=== PATIENT | female | born 1955 | race Two or more races ===

== ENCOUNTER → 2016-08-25 | Outpatient (CLI) | payer BC ==
[~2016-08-25] MED LIST: AMLO5TAB2 PO; BYDU1INJ SC; CLAR5TAB PO; DOXA1TAB71 PO; FENO48TA2 PO; GLIP5TAB8 PO; INSUDET SC; LISI10TA4 PO; MAGN400C2 PO; METO-207 PO; NEXI40GR PO; ROSU10TA PO; SERT-138 PO; TRAD5TAB PO; VITA100066 PO; ZOFR20TA PO
--- NOTE | 2016-08-25 16:26 | REPMRS ---
Patient History The patient states she had a clinical breast exam in 07/2016. Patient is postmenopausal, had previous chest radiation therapy at age 45, had previous chemotherapy at age 45, and has history of cancer in the left breast at age 44. Family history of breast cancer in maternal cousin at age 35. Malignant lumpectomy of the left breast, 1999. Took tamoxifen for 5 years. Digital Woman Screen Mammo: August 25, 2016 - Exam #: [id number] Bilateral CC and MLO view(s) were taken. Technologist: Fernanda Chang, Technologist Prior study comparison: August 24, 2015, bilateral digital mammo screening bilat, performed at [facility]. August 10, 2014, bilateral digital mammo screening bilat, performed at [facility]. June 04, 2013, bilateral digital mammo screening bilat, performed at [facility]. FINDINGS: There are scattered fibroglandular densities. There has been no change in the appearance of the mammogram from the prior studies. There are stable post treatment changes in the left breast. There is a mild amount of scattered fibroglandular density which is fairly symmetric. There is no interval development of dominant mass, architectural distortion, or clustered microcalcification suggestive of malignancy. ASSESSMENT: BI-RADS/ACR category 1 mammogram. Negative. Recommendation Routine screening mammogram in 1 year (for women over age 40). This mammogram was interpreted with the aid of an FDA-approved computer-aided dectection system. Electronically Signed By: Ryan Rojas MD 08/25/16 [id number]
--- NOTE | 2016-08-28 15:07 | DEXA ---
AP SPINE L1 - L4 1.314 1.0 LT FEMUR TOTAL 1.110 0.8 RT FEMUR TOTAL 1.080 0.6 TOTAL BODY TOTAL OTHER DUAL FEMUR FRAX* ASSESSMENT Risk factors: Secondary menopause, insulin-dependent, premature menopause. 10 year probability of fracture Major osteoporotic fracture 6.1 % Hip fracture 0.2 % COMMENTS: Normal bone densitometry of the spine and hips. Density of the spine has decreased 4.7% since the initial exam on 01/13/2005. The spine density has increased 1.6% since the most recent exam on 08/13/2008. The density of the left hip has decreased 10.1% since the initial exam on 2004. The density of the left hip has decreased 2.1% since the most recent exam on 03/2009. The density of the right hip has decreased 8.8% since the initial exam on 2004. The density of the right hip has decreased 1.8% since the most recent exam on . FOLLOW-UP: Recommendation for the next bone density exam: 5 years. MANPREET
== END ==
LOC: M WHC 14:35
PROVIDERS: ATTEND Internal Medicine Medical Oncology
DX: Z12.31 Encounter for screening mammogram for malignant neoplasm of breast (principal); Z78.0 Asymptomatic menopausal state
CPT/HCPCS: 77080; G0202

== ENCOUNTER → 2016-09-05 | Outpatient (REF) | payer BC ==
[2016-09-05 19:25] LABS: PERCENT SATURATION 21.4 % (13.2-37.4)
== END ==
LOC: M LAB REF 17:03
PROVIDERS: ATTEND Internal Medicine Medical Oncology
DX: C50.919 Malignant neoplasm of unspecified site of unspecified female breast (principal)

== ENCOUNTER → 2016-09-26 | Outpatient (CLI) | payer BC ==
[~2016-09-26] VITALS: Ht 172.7 cm; Wt 103.9 kg
[~2016-09-26] MED LIST changes: +FERR325T3 PO; +INSUH10VL SC; +LEVOTAB10 PO; +LIDOCAINE 2% INJ 100 MG/5 ML SDV (FOR ANES.) As Ordered ONE; +LISI-542 PO; +MONT10TA2 PO; +NS 1,000 ML IV SCH; +PROPOFOL 200 MG/20 ML VIAL As Ordered ONE; +TRES1INJ2 SC
--- NOTE | 2016-09-26 10:04 | ROOR ---
Patient Name: Monica Bone Procedure Date: 09/26/2016 9:53 AM Date of : 1955 Age: 61 Room: [facility] Gender: Female Note Status: Finalized Procedure: Upper GI endoscopy + SBB Indications: Unexplained iron deficiency anemia Providers: Yariel Plummer MD Referring MD: Gregorio Brand MD Requesting Provider: Medicines: Monitored Anesthesia Care Complications: No immediate complications. Procedure: Pre-Anesthesia Assessment: - The heart rate, respiratory rate, oxygen saturations, blood pressure, adequacy of pulmonary ventilation, and response to care were monitored throughout the procedure. The Endoscope was introduced through the mouth, and advanced to the second part of duodenum. The upper GI endoscopy was accomplished without difficulty. The patient tolerated the procedure well. Findings: The Z-line was regular and was found 40 cm from the incisors. No other significant abnormalities were identified in a careful examination of the stomach. The exam of the duodenum was otherwise normal. Biopsies for histology were taken with a cold forceps in the first portion of the duodenum for evaluation of celiac disease. The exam was otherwise without abnormality. Impression: - Z-line regular, 40 cm from the incisors. - The examination was otherwise normal. - Biopsies were taken with a cold forceps for evaluation of celiac disease. - The examination was otherwise normal. Recommendation: - Patient has a contact number available for emergencies. The signs and symptoms of potential delayed complications were discussed with the patient. Return to normal activities tomorrow. Written discharge instructions were provided to the patient. - High fiber diet. - Discharge patient to home. - Continue present medications. - Await pathology results. - Return to referring physician. - Telephone GI clinic for pathology results in 1 week. - The findings and recommendations were discussed with the patient's family. Yariel Plummer MD Yariel Plummer MD 09/26/2016 10:04:27 AM This report has been signed electronically. Number of Addenda: 0 Note Initiated On: 09/26/2016 9:53 AM Estimated Blood Loss: Estimated blood loss: none.
--- NOTE | 2016-09-26 10:18 | ROOR ---
Patient Name: Monica Bone Procedure Date: 09/26/2016 9:54 AM Date of : 1955 Age: 61 Room: [facility] Gender: Female Note Status: Finalized Procedure: Colonoscopy to Cecum Indications: Unexplained iron deficiency anemia Providers: Yariel Plummer MD Referring MD: Gregorio Brand MD Requesting Provider: Medicines: Monitored Anesthesia Care Complications: No immediate complications. Procedure: Pre-Anesthesia Assessment: - The heart rate, respiratory rate, oxygen saturations, blood pressure, adequacy of pulmonary ventilation, and response to care were monitored throughout the procedure. The Colonoscope was introduced through the anus and advanced to the cecum, identified by appendiceal orifice and ileocecal valve. The colonoscopy was performed without difficulty. The patient tolerated the procedure well. The quality of the bowel preparation was excellent. Findings: The perianal and digital rectal examinations were normal. Non-bleeding internal hemorrhoids were found during retroflexion. The hemorrhoids were small and Grade I (internal hemorrhoids that do not prolapse). Scattered small-mouthed diverticula were found in the recto-sigmoid colon, sigmoid colon and descending colon. The exam was otherwise without abnormality on direct and retroflexion views. Impression: - Non-bleeding internal hemorrhoids. - Diverticulosis in the recto-sigmoid colon, in the sigmoid colon and in the descending colon. - The examination was otherwise normal on direct and retroflexion views. - No specimens collected. - The exam was otherwise normal to the cecum. Recommendation: - Patient has a contact number available for emergencies. The signs and symptoms of potential delayed complications were discussed with the patient. Return to normal activities tomorrow. Written discharge instructions were provided to the patient. - High fiber diet. - Discharge patient to home. - Continue present medications. - Repeat colonoscopy in 10 years for screening purposes. - Return to referring physician. - The findings and recommendations were discussed with the patient's family. Yariel Plummer MD Yariel Plummer MD 09/26/2016 10:17:55 AM This report has been signed electronically. Number of Addenda: 0 Note Initiated On: 09/26/2016 9:54 AM Estimated Blood Loss: Estimated blood loss: none.
[2016-09-26 10:42] VITALS: BP 125/77
== END | disposition home or self-care (01) ==
LOC: M OPP 09:04
PROVIDERS: ATTEND Internal Medicine Gastroenterology
DX: D50.9 Iron deficiency anemia, unspecified (principal); K64.0 First degree hemorrhoids; K57.30 Diverticulosis of large intestine without perforation or abscess without bleeding; I12.9 Hypertensive chronic kidney disease with stage 1 through stage 4 chronic kidney disease, or unspecified chronic kidney disease; E78.5 Hyperlipidemia, unspecified; E10.9 Type 1 diabetes mellitus without complications; G47.30 Sleep apnea, unspecified; R06.83 Snoring; M17.0 Bilateral primary osteoarthritis of knee; F41.9 Anxiety disorder, unspecified; F32.9 Major depressive disorder, single episode, unspecified; G62.9 Polyneuropathy, unspecified; N18.9 Chronic kidney disease, unspecified; Z88.8 Allergy status to other drugs, medicaments and biological substances; Z79.84 Long term (current) use of oral hypoglycemic drugs; Z79.4 Long term (current) use of insulin; Z79.899 Other long term (current) drug therapy; Z85.3 Personal history of malignant neoplasm of breast; Z92.3 Personal history of irradiation; Z92.21 Personal history of antineoplastic chemotherapy; Z78.0 Asymptomatic menopausal state; K21.9 Gastro-esophageal reflux disease without esophagitis

== ENCOUNTER 2017-01-31 16:45 | Outpatient (RCR) | payer BC ==
[~2017-01-31 16:45] MED LIST changes: +CRES10TA32 PO; -LIDOCAINE 2% INJ 100 MG/5 ML SDV (FOR ANES.) As Ordered ONE; -METO-207 PO; +METO1TAB7 PO; -NS 1,000 ML IV SCH; -PROPOFOL 200 MG/20 ML VIAL As Ordered ONE; -ROSU10TA PO
== END 2017-02-02 ==
LOC: M PT 16:45
PROVIDERS: ATTEND Orthopaedic Surgery
DX: Z51.89 Encounter for other specified aftercare (principal); M17.11 Unilateral primary osteoarthritis, right knee

== ENCOUNTER 2017-03-01 16:00 | Outpatient (RCR) | payer BC | END 2017-03-05 | disposition home or self-care (01) | LOC: M PT 16:00 | PROVIDERS: ATTEND Orthopaedic Surgery | DX: Z51.89 Encounter for other specified aftercare (principal); M17.11 Unilateral primary osteoarthritis, right knee ==

== ENCOUNTER 2017-07-04 15:15 | Outpatient (RCR) | payer BC | END 2017-07-05 | LOC: M PT 15:15 | PROVIDERS: ATTEND Family Medicine | DX: Z51.89 Encounter for other specified aftercare (principal); M25.552 Pain in left hip; M54.32 Sciatica, left side ==

== ENCOUNTER → 2017-08-27 | Outpatient (CLI) | payer BC ==
[2017-08-27 19:46] LABS: ANION GAP 8 MEQ/L (8-16); BLOOD UREA NITROGEN 47 MG/DL (7-18); CALCIUM LEVEL 9.2 MG/DL (8.8-10.2); CARBON DIOXIDE LEVEL 23 MEQ/L (21-32); CHLORIDE LEVEL 107 MEQ/L (98-107); CREATININE FOR GFR 2.56 MG/DL (0.55-1.02); GLOMERULAR FILTRATION RATE 20.3 (>45); GLUCOSE, FASTING 128 MG/DL (70-100); POTASSIUM SERUM 5.1 MEQ/L (3.5-5.1); SODIUM LEVEL 138 MEQ/L (136-145)
== END ==
LOC: M LAB 16:28
DX: N18.3 Chronic kidney disease, stage 3 (moderate) (principal)
CPT/HCPCS: 80048

== ENCOUNTER → 2018-01-15 | Outpatient (CLI) | payer BC ==
[2018-01-15 12:55] LABS: BASO # 0.1 10^3/uL (0.0-0.2); BASO % 0.8 % (0.0-1.0); EOS # 0.3 10^3/uL (0.0-0.50); EOS % 3.5 % (0.0-3.0); HEMATOCRIT 32.6 % (36.0-47.0); HEMOGLOBIN 10.8 g/dl (12.0-15.5); IMMATURE GRANULOCYTE % 0.8 % (0-3.0); LYMPH # 1.3 10^3/uL (1.5-4.5); LYMPH % 18.4 % (24.0-44.0); MEAN CORPUSCULAR HEMOGLOBIN 28.8 pg (27.0-33.0); MEAN CORPUSCULAR HGB CONC 33.1 g/dl (32.0-36.5); MEAN CORPUSCULAR VOLUME 86.9 fl (80.0-96.0); MONO # 0.5 10^3/uL (0.0-0.8); MONO % 6.8 % (0.0-5.0); NEUTROPHILS # 4.9 10^3/uL (1.8-7.7); NEUTROPHILS % 69.7 % (36.0-66.0); PLATELET COUNT, AUTOMATED 256 10^3/uL (150-450); RED BLOOD COUNT 3.75 10^6/uL (4.00-5.40); RED CELL DISTRIBUTION WIDTH 12.3 % (11.5-14.5); WHITE BLOOD COUNT 7.1 10^3/uL (4.0-10.0)
[2018-01-15 13:08] LABS: PROLACTIN 5.4 NG/ML
[2018-01-15 13:16] LABS: ALBUMIN 3.5 GM/DL (3.2-5.2); ALBUMIN/GLOBULIN RATIO 0.97 (1.00-1.93); ALKALINE PHOSPHATASE 67 U/L (45-117); ALT/SGPT 19 U/L (12-78); ANION GAP 8 MEQ/L (8-16); AST/SGOT 10 U/L (7-37); BILIRUBIN,TOTAL 0.3 MG/DL (0.2-1.0); BLOOD UREA NITROGEN 43 MG/DL (7-18); CALCIUM LEVEL 9.2 MG/DL (8.8-10.2); CARBON DIOXIDE LEVEL 23 MEQ/L (21-32); CHLORIDE LEVEL 108 MEQ/L (98-107); CREATININE FOR GFR 2.45 MG/DL (0.55-1.30); GLOMERULAR FILTRATION RATE 21.3 (>45); GLUCOSE, FASTING 232 MG/DL (70-100); HCG, SERUM QUANTITATIVE 2 MIU/ML; SODIUM LEVEL 139 MEQ/L (136-145); TOTAL PROTEIN 7.1 GM/DL (6.4-8.2)
[2018-01-15 13:18] LABS: ESTIMATED AVERAGE GLUCOSE 189 MG/DL (60-110); HEMOGLOBIN A1c 8.2 %
[2018-01-15 13:21] LABS: POTASSIUM SERUM 5.5 MEQ/L (3.5-5.1)
== END ==
LOC: M LAB 12:04
DX: N64.52 Nipple discharge (principal); C50.912 Malignant neoplasm of unspecified site of left female breast; E11.9 Type 2 diabetes mellitus without complications
CPT/HCPCS: 84146

== ENCOUNTER → 2018-01-17 | Outpatient (CLI) | payer BC | LOC: M RAD 13:52 | DX: N64.52 Nipple discharge (principal) ==

== ENCOUNTER → 2018-03-19 | Outpatient (CLI) | payer BC | LOC: M RAD 11:38 | DX: I73.9 Peripheral vascular disease, unspecified (principal) | CPT/HCPCS: 93925 ==

== ENCOUNTER 2018-03-26 07:14 | Day surgery (SDC) | payer BC ==
[~2018-03-26 07:14] MED LIST changes: -AMLO5TAB2 PO; -BYDU1INJ SC; -CLAR5TAB PO; -CRES10TA32 PO; -DOXA1TAB71 PO; -FENO48TA2 PO; -FERR325T3 PO; -GLIP5TAB8 PO; -INSUDET SC; -INSUH10VL SC; -LEVOTAB10 PO; +LIDOCAINE 2% INJ 100 MG/5 ML SDV (FOR ANES.) As Ordered; +LIDOCAINE 3.5 % 1ML OPHTH TOPICAL GEL OU; -LISI-542 PO; -LISI10TA4 PO; -MAGN400C2 PO; -METO1TAB7 PO; -MONT10TA2 PO; -NEXI40GR PO; +PROPOFOL 200 MG/20 ML VIAL As Ordered; -SERT-138 PO; -TRAD5TAB PO; -TRES1INJ2 SC; -VITA100066 PO; -ZOFR20TA PO
[2018-03-26 07:54] LABS: BEDSIDE GLUCOSE 133 MG/DL (80-115)
[2018-03-26] MEDS: POVIDONE-IODINE 5% OPHTH PREP SOL 30ML As Ordered (09:09)
[2018-03-26] MEDS: LIDOCAINE 2% W/EPIN INJ 20ML **PRES FREE As Ordered (09:09)
[2018-03-26] MEDS: TOBRADEX OPHTH OINT 3.5 GM As Ordered (09:13)
[2018-03-26] MEDS ORDERED: MIDAZOLAM INJ 2 MG/2 ML VIAL (J2250) As Ordered (09:15)
[2018-03-26] MEDS ORDERED: fentaNYL 100 MCG/2 ML INJECTION (J3010) As Ordered (09:15)
== END 2018-03-26 10:37 | disposition home or self-care (01) ==
LOC: M SDC 07:14
DX: D23.11 Other benign neoplasm of skin of right eyelid, including canthus (principal); I12.9 Hypertensive chronic kidney disease with stage 1 through stage 4 chronic kidney disease, or unspecified chronic kidney disease; E78.5 Hyperlipidemia, unspecified; E10.40 Type 1 diabetes mellitus with diabetic neuropathy, unspecified; E10.22 Type 1 diabetes mellitus with diabetic chronic kidney disease; K21.9 Gastro-esophageal reflux disease without esophagitis; D64.9 Anemia, unspecified; M17.0 Bilateral primary osteoarthritis of knee; F41.9 Anxiety disorder, unspecified; F32.9 Major depressive disorder, single episode, unspecified; G47.33 Obstructive sleep apnea (adult) (pediatric); R06.83 Snoring; N18.9 Chronic kidney disease, unspecified; E66.9 Obesity, unspecified; Z68.33 Body mass index [BMI] 33.0-33.9, adult; Z88.8 Allergy status to other drugs, medicaments and biological substances; Z79.899 Other long term (current) drug therapy; Z79.4 Long term (current) use of insulin; Z92.21 Personal history of antineoplastic chemotherapy; Z85.3 Personal history of malignant neoplasm of breast
CPT/HCPCS: 11420

== ENCOUNTER → 2018-06-25 | Outpatient (REF) | payer BC ==
[2018-06-25 13:22] LABS: APPEARANCE, URINE CLEAR (CLEAR); BACTERIA, URINE AUTO NEGATIVE (NEGATIVE); BILIRUBIN, URINE AUTO NEGATIVE (NEGATIVE); BLOOD, URINE BLOOD 1+ (NEGATIVE); COLOR, URINE STRAW (YELLOW); GLUCOSE, URINE (UA) AUTO 1+ mg/dL (NEGATIVE); KETONE, URINE AUTO NEGATIVE (NEGATIVE); LEUKOCYTE ESTERASE, URINE AUTO NEGATIVE (NEGATIVE); NITRITE, URINE AUTO NEGATIVE (NEGATIVE); PROTEIN, URINE AUTO 2+ mg/dL (NEGATIVE); RBC, URINE AUTO 0 /HPF (0-3); SPECIFIC GRAVITY URINE AUTO 1.012 (1.002-1.035); SQUAMOUS EPITHELIAL CELL UR AU 0 /HPF (0-6); UROBILINOGEN, URINE AUTO 0.2 mg/dL (0.0-2.0); WBC, URINE AUTO 0 /HPF (0-3)
== END ==
LOC: M LAB REF 12:20
DX: N39.0 Urinary tract infection, site not specified (principal)
CPT/HCPCS: 81001

== ENCOUNTER → 2018-09-02 | Outpatient (CLI) | payer BC ==
[~2018-09-02] MED LIST changes: +AMLO5TAB6 PO; +BYDU1INJ SC; +CLAR5TAB PO; +CRES10TA32 PO; +DOXA2TAB3 PO; +FENO48TA2 PO; +FERR325T3 PO; +GLIP5TAB8 PO; +INSUDET SC; +INSUH10VL SC; +LEVOTAB10 PO; -LIDOCAINE 2% INJ 100 MG/5 ML SDV (FOR ANES.) As Ordered; -LIDOCAINE 3.5 % 1ML OPHTH TOPICAL GEL OU; +LISI-542 PO; +LISI10TA4 PO; +MAGN400C2 PO; +METO1TAB7 PO; +MONT10TA2 PO; +NEXI40GR PO; -PROPOFOL 200 MG/20 ML VIAL As Ordered; +SERT-138 PO; +TIZA4CAP PO; +TRAD5TAB PO; +TRES1INJ2 SC; +VITA100066 PO; +VITA400C67 PO; +ZOFR4TAB16 PO
--- NOTE | 2018-09-02 11:27 | REP ---
Clinical: Preoperative assessment . Comparison: 08/27/2007 . Technique: PA and lateral. Findings: The mediastinum and cardiac silhouette are normal. Airway is patent and midline. The lung cantu are clear and without acute consolidation, effusion, or pneumothorax. Evidence of prior left axillary node dissection. Degenerative changes to the left shoulder identified. Impression: 1. No acute cardiopulmonary process. Electronically Signed by Ramon Casiano MD 09/02/2018 11:20 A
[2018-09-02 11:41] LABS: HEMATOCRIT 35.3 % (36.0-47.0); HEMOGLOBIN 11.8 g/dl (12.0-15.5); MEAN CORPUSCULAR HEMOGLOBIN 29.1 pg (27.0-33.0); MEAN CORPUSCULAR HGB CONC 33.4 g/dl (32.0-36.5); MEAN CORPUSCULAR VOLUME 87.2 fl (80.0-96.0); PLATELET COUNT, AUTOMATED 260 10^3/uL (150-450); RED BLOOD COUNT 4.05 10^6/uL (4.00-5.40); WHITE BLOOD COUNT 8.2 10^3/uL (4.0-10.0)
[2018-09-02 11:55] LABS: INR 0.94; PROTHROMBIN TIME 12.6 SECONDS (12.1-14.4)
[2018-09-02 12:10] LABS: ERYTHROCYTE SEDIMENTATION RATE 45 mm/hr (0-30)
[2018-09-02 12:13] LABS: ALBUMIN 3.8 GM/DL (3.2-5.2); BILIRUBIN,TOTAL 0.3 MG/DL (0.2-1.0); CALCIUM LEVEL 9.5 MG/DL (8.8-10.2); CREATININE FOR GFR 3.05 MG/DL (0.55-1.30); GLOMERULAR FILTRATION RATE 16.5 (>45); POTASSIUM SERUM 5.2 MEQ/L (3.5-5.1); TOTAL PROTEIN 7.2 GM/DL (6.4-8.2)
--- NOTE | 2018-09-04 00:29 | ECGEPIP ---
Stationary ECG Study [facility] Test Date: 2018-09-02 Pat Name: INGRID HILL Department: Room: - Gender: F Hand Assembler: MELLISSA : 1955 Requested By: Dionisio Hernandez Order Number: [id number] Reading MD: Bryce Mejia Measurements Intervals [place] Rate: 70 P: 49 ME: 183 QRS: -33 QRSD: 91 T: 43 QT: 410 QTc: 444 Interpretive Statements SINUS RHYTHM MARKED LEFT AXIS DEVIATION. POSSIBLE PRIOR INFERIOR WALL INFARCT SEPTAL MYOCARDIAL INFARCTION, OF INDETERMINATE AGE. MAY BE RELATED TO LEAD MISPLACEMENT CAUSING POOR R-WAVE PROGRESSION COMPARED TO THE LAST 2 TRACINGS IN THE SYSTEM IN 2014, THERE WAS BETTER R-WAVE PROGRESSION Electronically Signed On 09-04-2018 0:29:30 EST by Bryce Mejia
== END ==
LOC: M LAB 10:43
PROVIDERS: ATTEND Orthopaedic Surgery
DX: Z01.818 Encounter for other preprocedural examination (principal); M17.11 Unilateral primary osteoarthritis, right knee; I10 Essential (primary) hypertension; E11.9 Type 2 diabetes mellitus without complications; K21.9 Gastro-esophageal reflux disease without esophagitis; G47.30 Sleep apnea, unspecified

== ENCOUNTER 2018-09-24 14:45 | Inpatient (IN) | payer BC ==
--- NOTE | 2018-09-13 15:00 | HPE ---
DATE OF ADMISSION: 09/24/2018 HISTORY OF PRESENT ILLNESS: This is a pleasant female with continuing symptomatic right knee osteoarthritis. She has consented for right total knee arthroplasty per Dr. Dionisio Hernandez. She recently had medical optimization with Dr. Brand, but is awaiting further workup by cardiology. Dr. Brand sent her to nephrology as there were some concerns so she is awaiting this completion. Her surgery admission date was 09/24/2018. Unfortunately, she is scheduled for cardiac cardiology evaluation on 10/01/2018. The patient and her are going to attempt to expedite this consult and would like to maintain their surgery date until that point. X-rays are consistent with advanced osteoarthritis. ALLERGIES: None known. CURRENT MEDICATIONS: - tizanidine HCL 4 mg - Tylenol with Codeine #3 300-30 mg - Euflexxa - She also notes taking lisinopril. The patient has a greater list of medications. She was supposed to bring in her list, which she does not have today. I am yet to receive her optimization note from Dr. Brand so when it arrives we will update this list accordingly. MEDICAL PROBLEM LIST: Includes: Right knee symptomatic osteoarthritis. Type 2 diabetes which should be corrected in her chart from 07/18/2018, it says type 1 diabetes. She is insulin dependent. Hypertension. Kidney disease. Depression. SURGICAL HISTORY: Breast cancer with left lumpectomy, some residual lymphatic issues in the left upper extremity, so she does not take a blood pressure cuff on the inside, only the right arm. FAMILY HISTORY: Positive for arthritis, diabetes, hypertension. SOCIAL HISTORY: Denies smoking, ethanol intake or illicit drugs. REVIEW OF SYSTEMS: Denies chest pain, shortness of breath, dyspnea on exertion, fever, chills, malaise, upper respiratory or urinary tract symptoms. LABORATORY DATA: Via [facility] 09/02/[address] Hernandez. The findings show hemoglobin at 11.8, hematocrit 35.3. Sed rate 45, glucose 192, BUN 54, creatinine blood 3.05, GFR 16.5, potassium 5.2, GFR is greater than 45 indicative of stage III chronic kidney disease. Otherwise, labs were unremarkable. Chest x-ray was completed via [facility], service date 09/02/2018, showed no acute cardiopulmonary process as read by Dr. Casiano. EKG shows sinus rhythm, marked left axis deviation. Possible prior inferior wall infarct septal myocardial infarction of indeterminate age. Also may be related to lead misplacement causing poor R-wave progression. Compared last two tracings in the system in 2014, there was a better R-wave progression as read by Dr. Bryce Mejia. PHYSICAL EXAMINATION: Height 5 feet 7 inches, weight 225.8, temperature 97.2, blood pressure 143/80. This is a pleasant well-developed, well-nourished obese female in no acute distress. She is alert and orientated times three. Mood and affect are appropriate. She is ambulating with favoring of the left lower extremity. Right knee is not effused, ecchymotic, erythematous. Benign, non infectious looking, not hot to touch. She has positive joint line tenderness with crepitance above the knee through flexion and extension. Otherwise, no gross deformities about bowels times four. Chest rises symmetrically. Neck supple. Negative jugular venous distention (JVD) or bruits. Normocephalic. Lower extremities were benign, noninfectious looking. Skin is intact. IMPRESSION: 1. Symptomatic right knee osteoarthritis. 2. Patient consented for a right total knee arthroplasty per Dr. Dionisio Hernandez. 3. Medical optimization was performed by Dr. Brand with subsequent nephrology consult now awaiting cardiac clearance scheduled with Dr. Smith's office on 10/01/2018. 4. Tentative rescheduling of surgery per primary care, nephrology and cardiac clearance. 5. 2 grams IV Kefzol in OR. 6. Sequential compression devices (SCD) and thromboembolic deterrent stockings (TEDS) in OR. 7. We will await consultation results, update her medication list and set up any potential rescheduling as needed. The patient understands and agrees with the plan. MANPREET
[~2018-09-24] VITALS: Ht 182.9 cm; Wt 104.3 kg
[2018-10-09] VITALS (8 sets, daily range): BP systolic 134–149; BP diastolic 73–86; O2SAT 97
[2018-10-09] MEDS ORDERED: BUPIVACAINE LIPOSOME/PF 1.3% 20ML VIAL (13.3MG/ML)(EXPAREL)(C9290 PER1MG) As Ordered ONE (09:52)
[2018-10-09] MEDS ORDERED: ceFAZolin 1GM INJ (J0690 PER 500MG) As Ordered ONE (09:52)
[2018-10-09] MEDS ORDERED: EPINEPHrine INJ 1 MG/ML 1ML AMP As Ordered ONE (09:54)
[2018-10-09] MEDS ORDERED: TRANEXAMIC ACID 100 MG/ML 10ML VIAL As Ordered ONE (09:54)
[2018-10-09] MEDS ORDERED: LR 1,000 ML IV SCH (11:45)
[2018-10-09] MEDS ORDERED: LR 1,000 ML IV ONE (11:45)
[2018-10-09] MEDS ORDERED: BUPIVACAINE HCL 0.25% 30 ML VIAL As Ordered ONE (12:39)
[2018-10-09] MEDS ORDERED: BUPIVACAINE HCL 0.25% 10 ML VIAL As Ordered ONE (12:39)
[2018-10-09] MEDS ORDERED: fentaNYL 100 MCG/2 ML INJECTION (J3010) As Ordered ONE ×2 (12:39→12:43)
[2018-10-09] MEDS ORDERED: MIDAZOLAM INJ 2 MG/2 ML VIAL (J2250) As Ordered ONE ×2 (12:39→12:43)
[2018-10-09] MEDS ORDERED: PROPOFOL 200 MG/20 ML VIAL As Ordered ONE ×3 (12:43→15:34)
[2018-10-09] MEDS ORDERED: LIDOCAINE 2% INJ 100 MG/5 ML SDV (FOR ANES.) As Ordered ONE (12:43)
[2018-10-09] MEDS ORDERED: BUPIVACAINE/DEXTROSE 0.75% 2 ML AMP As Ordered ONE (12:47)
[2018-10-09] MEDS ORDERED: MIDAZOLAM INJ 2 MG/2 ML VIAL (J2250) IV ONE (13:00)
[2018-10-09] MEDS ORDERED: fentaNYL 100 MCG/2 ML INJECTION (J3010) IV ONE (13:45)
--- NOTE | 2018-10-09 14:22 | IPN ---
DATE: 10/09/2018 The patient seen and examined. She wished to go ahead with a right total knee arthroplasty. She understands the nature of this, the risks of bleeding, infection, damage to nerves, vessels, persistent pain, stiffness, among others. She understands that her preoperative stiffness often predicts postoperative stiffness. Preop clearance was obtained.
[2018-10-09] MEDS ORDERED: ONDANSETRON 4MG/2ML VIAL (J2405) As Ordered ONE (15:48)
[2018-10-09] MEDS ORDERED: KETOROLAC 60 MG/2 ML VIAL (J1885) As Ordered ONE (15:48)
[2018-10-09] MEDS ORDERED: FLEET ENEMA PR PRN (16:15)
[2018-10-09] MEDS ORDERED: fentaNYL 100 MCG/2 ML INJECTION (J3010) IV PRN (16:15)
[2018-10-09] MEDS ORDERED: HYDROMORPHONE HCL 0.5 MG/ 0.5 ML SYRINGE (J1170 PER 1) IV PRN (16:15)
--- NOTE | 2018-10-09 16:22 | RO ---
DATE OF PROCEDURE: 10/09/2018 PREOPERATIVE DIAGNOSIS: Right knee osteoarthritis. POSTOPERATIVE DIAGNOSIS: Right knee osteoarthritis. PROCEDURE: Right total knee arthroplasty using a two rotating platform posterior stabilized size 5 femur, size 5 tibia, 10 polyethylene, 38 patellar button. SURGEON: Dionisio Hernandez MD INTERIOR HORTICULTURIST: ANESTHESIA: Spinal. ESTIMATED BLOOD LOSS (EBL): Less than 50. COMPLICATIONS: None. INDICATIONS: This is a morbidly obese, 63-year-old woman, who has had some persistent pain and arthritis in the knee that has been refractory to conservative management. She wished to go ahead with surgical treatment having failed conservative management. She understood the nature of this, the risks of bleeding, infection, damage to nerves, vessels, persistent pain, wear loosening, blood clots, medical problems, , among others. DESCRIPTION OF PROCEDURE: The patient was taken the operating room and placed supine position after spinal anesthesia was induced. The right lower extremity prepped and draped in the usual sterile fashion. Tourniquet was inflated after a time-out was performed and a longitudinal incision was made over the anterior aspect of the knee and medial parapatellar arthrotomy was performed. I then flexed the knee up and used a canal initiating reamer on the femoral side, followed by the intramedullary guide set at 5 of valgus 9 mm cut. This was pinned in place and the distal femoral cut was made while protecting soft tissues. I sized the femur to be a 5 and the pin holes were placed the end of the femur with the external rotation dialed in. Size 5 cutting block was secured and the remaining four cuts were made. Removed the bone and then prepared the tibial surface. The tibial alignment guide was then placed in appropriate amount of valgus and posterior slope. I removed 2 mm off the low side and removed this bone. The posterior cruciate ligament (PCL) was still felt to be intact. I used a rn first assist between both sides of the knee. I then removed soft tissue and osteophytes from either side of the knee. I then used the spacer blocks and felt like between a size 8 and a size10 was going to be appropriate for thickness. I then prepared the sulcus on the femur and the tibial tray was sized to be a 5. I drilled and broached. Placed trial components, but she seemed to be somewhat tight in hyperflexion with the femur been spit out, so I was worried the PCL was just tight and she had pretty limited motion preoperatively, so I elected to go ahead with the PCL sacrificing knee in hopes of getting more motion and better balance. So, the box cut was made on the femoral side. I removed the PCL and the trial components were replaced using the posterior stabilized polyethylene and I trialed an 8 and then a 10, and the 10 had the best fit and balance with excellent flexion and stability in flexion and extension and alignment. I then freehand cut the patella removing about 7 or 8 mm of bone. Sized to be a 38. Drill holes were placed. I placed the drill holes in the end of the femur as well and then removed the trial components after I made sure the patella tracked well. The mail handler assistant prepared the bone cement modern technique. The surfaces were copiously irrigated. The Exparel solution was placed in the deep tissues. I then irrigated, dried the bony surfaces and cemented on the tibial surface and the femoral surface. Placed the polyethylene 10 x 5, then the cement on the patellar button, held this in place. I removed all the excess bone cement, irrigated copiously, placed the tranexamic acid (TXA) solution deep in the tissues and then repaired the deep layer with interrupted #1 Vicryl suture, followed by running Stratafix suture obtaining a watertight closure. The patella tracked very nicely at this point. I had irrigated one final time just prior to final wound closure and then irrigated the subcu. I closed the subcu with #2-0 Vicryl and the skin with tessa. Sterile dressing was applied. Tourniquet had been deflated. She was taken to recovery room in stable. There were no known complications. The plan will be routine postop. The mail handler assistant was instrumental in holding retractors, assisting in mixing the bone cement and wound closure, and making the distal femoral cut under my direct supervision.
[2018-10-09] MEDS ORDERED: ONDANSETRON 4MG/2ML VIAL (J2405) IV PRN (16:30)
[2018-10-09] MEDS: LR 1,000 ML IV SCH (16:30)
[2018-10-09] MEDS ORDERED: MORPHINE 4 MG/ML 1ML VIAL/SYRINGE (J2270) IV PRN (16:30)
--- NOTE | 2018-10-09 17:09 | REP ---
Right knee: Two views: History: Postop. Comparison right knee radiographs July 18, 2016. Findings: The patient is status post right knee arthroplasty. Arthroplasty components are well aligned. Anterior skin tessa are seen. The periarticular anterior soft tissue show emphysema and swelling. Impression: Status post right knee arthroplasty. Electronically Signed by Billy Rojas MD 10/09/2018 05:15 P
[2018-10-09] MEDS ORDERED: DEXTROSE 50% 50 ML SYRINGE IV PRN (18:00)
[2018-10-09] MEDS ORDERED: GLUCAGON FOR INJ 1 MG VIAL (J1610) SC PRN (18:00)
[2018-10-09] MEDS ORDERED: GLUCOSE 4 GM CHEW TABLET PO PRN (18:00)
[2018-10-09] MEDS: PERCOCET 5MG/325MG TAB PO PRN (20:56)
[2018-10-09] MEDS: LEVEMIR (INSULIN DETEMIR) 1 UNITS/0.01ML SC SCH (21:00)
[2018-10-09] MEDS: HumaLOG INSULIN (NovoLOG) PER UNIT SC SCH (21:00)
[2018-10-09] MEDS: FERROUS SULFATE 325MG TAB PO SCH (21:55)
[2018-10-09] MEDS: SERTRALINE HCL 50 MG TAB PO SCH (21:56)
[2018-10-09] MEDS: LISINOPRIL 5 MG TAB PO SCH (21:56)
[2018-10-09] MEDS: MONTELUKAST 10 MG TAB PO SCH (21:58)
[2018-10-09] MEDS ORDERED: LEVEMIR (INSULIN DETEMIR) 1 UNITS/0.01ML SC ONE (22:00)
[2018-10-09 22:26] LABS: HEMOGLOBIN 9.9 g/dl (12.0-15.5); PLATELET COUNT, AUTOMATED 227 10^3/uL (150-450); RED BLOOD COUNT 3.41 10^6/uL (4.00-5.40); WHITE BLOOD COUNT 12.9 10^3/uL (4.0-10.0)
[2018-10-09 22:42] LABS: CALCIUM LEVEL 8.3 MG/DL (8.8-10.2); CREATININE FOR GFR 2.55 MG/DL (0.55-1.30); GLOMERULAR FILTRATION RATE 20.3 (>45); POTASSIUM SERUM 5.6 MEQ/L (3.5-5.1)
[2018-10-09] MEDS: MORPHINE 4 MG/ML 1ML VIAL/SYRINGE (J2270) IV PRN (23:40)
[2018-10-10 01:15] VITALS: BP 141/73
[2018-10-10] MEDS: MORPHINE 4 MG/ML 1ML VIAL/SYRINGE (J2270) IV PRN (01:52)
--- NOTE | 2018-10-10 05:42 | HPE ---
DATE OF ADMISSION: 10/09/2018 CHIEF COMPLAINT: Status post right total knee replacement for medical management. HISTORY OF PRESENT ILLNESS: This is a 63-year-old female with past medical history of diabetes, chronic kidney disease (CKD), hypertension, prior history of breast cancer status post lumpectomy, hyperlipidemia who presents status post right total knee replacement today for medical management. The patient currently not having any complaints. Her blood pressures have been adequately controlled on the unit. She says her pain is currently controlled. She follows with Dr. Baez for her chronic kidney disease. REVIEW OF SYSTEMS: Negative systems except as noted above. PAST MEDICAL HISTORY: As above in history of present illness (HPI). PAST SURGICAL HISTORY: The patient has a history of left lumpectomy, as well as knee surgery today. HOME MEDICATIONS: - Glipizide 5 mg daily - tizanidine 4 mg a day as needed pain - Nexium 40 mg daily - levocetirizine 5 mg at bedtime - magnesium 400 mg twice daily - amlodipine 2.5 mg daily - vitamin D 1000 units IU daily - ferrous sulfate 325 mg daily - fenofibrate 40 mg daily - doxazosin 2 mg daily - lisinopril 5 mg at bedtime and 10 mg daily - metoprolol 50 mg daily - montelukast 10 mg at bedtime - Crestor 10 mg daily - Sertraline 150 mg at bedtime - Tresiba 20 units subcutaneous in the morning ALLERGIES: The patient is allergic to EXENATIDE. FAMILY HISTORY: Mother and sister have diabetes. SOCIAL HISTORY: The patient is currently and has two adult children. No smoking, alcohol or drugs. PHYSICAL EXAM: VITAL SIGNS: On exam, the patient's vital signs are afebrile to 98.2, blood pressure 149/81, pulse 72, respirations 18, satting 98% on room air. In general, she is in no acute distress and very pleasant. HEENT Exam: Oropharynx is clear. NECK: Supple. CARDIOVASCULAR: Regular rate and rhythm. No murmurs, rubs, gallops. LUNGS: Clear to auscultation bilaterally. ABDOMEN: Soft, nontender, obese, nondistended. EXTREMITIES: The patient's right lower extremity is wrapped from the recent surgery. NEUROLOGY: She is awake, alert and oriented times three, follows simple commands. No focal neurologic deficits. PSYCHIATRIC: Mood stable. LABORATORY DATA: Creatinine 3.05 but that was back in August of 2018. She does not have any postoperative labs and I will check them now. IMAGING: She had a knee x-ray today which shows she is status post right knee arthroplasty. ASSESSMENT AND PLAN: This is a 63-year-old female with past medical history of diabetes, hypertension, chronic kidney disease now status post right total knee replacement who we have been consulted for postoperative medical management. PROBLEMS: 1. Diabetes. At this time the patient is not eating as usual, therefore I have just placed her on a sliding scale and held her home Tresiba and oral hyperglycemics. As her oral intake improves, she can be resumed on the equivalent of Tresiba. 2. Chronic kidney disease. The patient does not have a creatinine postoperative, so I am going to check postoperative labs now and the primary consulting team can follow this up again tomorrow. She does followup with Dr. Baez in [place]. 3. Hypertension. I am continuing her on lisinopril and Amlodipine. Her blood pressures are currently controlled. 4. Pain control per orthopedics. 5. Deep venous thrombosis prophylaxis per orthopedics.
[2018-10-10] MEDS: LR 1,000 ML IV SCH (05:50)
[2018-10-10 06:00] VITALS: BP 148/89
[2018-10-10] MEDS ORDERED: ONDANSETRON 4 MG TAB (S0181) PO PRN (06:45)
[2018-10-10] MEDS ORDERED: XARE10TA PO (07:03)
[2018-10-10] MEDS ORDERED: PERC5TAB12 PO (07:03)
[2018-10-10 07:07] LABS: HEMATOCRIT 29.7 % (36.0-47.0); HEMOGLOBIN 9.5 g/dl (12.0-15.5); MEAN CORPUSCULAR HEMOGLOBIN 28.7 pg (27.0-33.0); MEAN CORPUSCULAR VOLUME 89.7 fl (80.0-96.0); PLATELET COUNT, AUTOMATED 216 10^3/uL (150-450); RED BLOOD COUNT 3.31 10^6/uL (4.00-5.40); WHITE BLOOD COUNT 10.2 10^3/uL (4.0-10.0)
[2018-10-10] MEDS ORDERED: LISINOPRIL 10 MG TAB PO SCH (09:00)
[2018-10-10] MEDS: MIRALAX *UNIT DOSE* 17GM PACKET PO SCH (09:36)
[2018-10-10] MEDS: MOM 30ML SUSPENSION UDC PO SCH (09:37)
[2018-10-10] MEDS: DOXAZOSIN MESYLATE 1 MG TAB PO SCH (09:37)
[2018-10-10] MEDS: VITAMIN D 1,000 INTERNATIONAL UNITS TABLET PO SCH (09:39)
[2018-10-10] MEDS: MORPHINE 15 MG SA TAB PO SCH ×2 (09:39→20:16)
[2018-10-10] MEDS: FERROUS SULFATE 325MG TAB PO SCH ×2 (09:39→20:17)
[2018-10-10] MEDS: FENOFIBRATE 48 MG TAB (TRICOR) PO SCH (09:40)
[2018-10-10] MEDS: PERCOCET 5MG/325MG TAB PO PRN ×2 (09:40→14:08)
[2018-10-10] MEDS: ROSUVASTATIN 10 MG TAB (CRESTOR) PO SCH (09:40)
[2018-10-10] MEDS: METOPROLOL SUCC (TopROL XL) 50MG **XL** TAB PO SCH (09:41)
[2018-10-10] MEDS: HumaLOG INSULIN (NovoLOG) PER UNIT SC SCH ×4 (09:41→20:18)
[2018-10-10 10:00] VITALS: BP 150/81
[2018-10-10 10:52] LABS: CALCIUM LEVEL 8.4 MG/DL (8.8-10.2); CREATININE FOR GFR 2.58 MG/DL (0.55-1.30)
--- NOTE | 2018-10-10 11:38 | IPNPDOC ---
Text Note Date of Service The patient was seen on 10/10/18. NOTE Subjective: Patient is interviewed and examined at bedside this morning. She continues to complain of R knee pain related to her recent procedure. She shares that he pain has been adequately controlled with PO medications. She denies other acute complaints this morning. Objective: Vitals: (see below) GENERAL: Awake, Alert and oriented, able to participate in her care, no acute distress HEENT Exam: Mucous membranes are moist, sclera are non-icteric NECK: Supple, no JVD appreciated CARDIOVASCULAR: Regular rate and rhythm. No murmurs, rubs, gallops. LUNGS: Clear to auscultation bilaterally. ABDOMEN: Soft, nontender, obese, nondistended. EXTREMITIES: The patient's right lower extremity is wrapped from the recent surgery. PT pulse 2+ in left lower extremity. NEUROLOGY: She is awake, alert and oriented times three, follows simple commands. No focal neurologic deficits. PSYCHIATRIC: Mood and affect are appropriate for the patient's condition. Labs (see below) Images: R knee XR (10/09/18): s/p right knee arthroplasty Assessment/Plan: Ms. Monica Bone is a 63-year-old female with past medical history of diabetes, hypertension, chronic kidney disease now status post right total knee replacement who we have been consulted for postoperative medical management. 1. Diabetes. - At this time the patient is not eating as usual, therefore she had been placed on a sliding scale and her home Tresiba and oral hyperglycemics have been held. As her oral intake improves, she can be resumed on the equivalent of Tresiba. 2. Chronic kidney disease. - Cr 2.58, per the medical record, these appears to be close to her baseline. - Patient is followed with Dr. Baez in [place]. 3. Hyperkalemia: - Potassium of 6.0 - EKG ordered - 1 gram Calcium gluconate - 30 gram Kayexalate on back-order, per pharmacy recommendations, 8.4 mg of Veltassa ordered. - Re-check BMP at 1999. 3. Hypertension. - Blood pressure stable - Patient continued on home medications of lisinopril and amlodipine. 4. Pain control - Morphine 15 mg PO OLEG Per orthopedics. DVT prophy: per orthopedics Dispo: Per orthopedics VS,Fishbone, I+O VS, [place], I+O Laboratory Tests 10/09/18 11:42 10/09/18 22:18 Red Blood Count 3.41 L, Mean Corpuscular Volume 88.0, Mean Corpuscular Hemoglobin 29.0, Mean Corpuscular Hemoglobin Concent 33.0, Red Cell Distribution Width 12.3, Calcium Level 8.3 L 10/10/18 06:51 Red Blood Count 3.31 L, Mean Corpuscular Volume 89.7, Mean Corpuscular Hemoglobin 28.7, Mean Corpuscular Hemoglobin Concent 32.0, Red Cell Distribution Width 12.3, Calcium Level 8.4 L Vital Signs Date Time Temp Pulse Resp B/P (MAP) Pulse Ox O2 Delivery O2 Flow Rate FiO2 10/10/18 10:10 20 10/10/18 10:00 99.9 72 150/81 (104) 100 10/09/18 16:40 Room Air 10/09/18 13:50 2 I&O- Last 24 Hours up to 6 AM 10/10/18 06:00 Intake Total 2300 ml Output Total 750 ml Balance 1550 ml GME ATTESTATION GME ATTESTATION My faculty preceptor for this patient encounter was physically present during the encounter and was fully available. All aspects of the patient interview, examination, medical decision making process, and medical care plan development were reviewed and approved by the faculty preceptor. The faculty preceptor is aware and concurs with the plan as stated in the body of this note and will attest to such by his/her cosignature. FARA TURNER DO Oct 10, 2018 11:38
[2018-10-10 14:00] VITALS: BP 159/55
[2018-10-10] MEDS ORDERED: PATIROMER SORBITEX CALCIUM 8.4 GM POWDER PACKET (VELTASSA) PO ONE (15:00)
[2018-10-10] MEDS ORDERED: CALCIUM GLUCONATE 1,000 MG in D5W MINI-BAG PLUS 100 ML IV ONE (15:00)
[2018-10-10] MEDS: RIVAROXABAN 10 MG TAB (XARELTO) PO SCH (17:52)
[2018-10-10 20:00] LABS: CALCIUM LEVEL 8.9 MG/DL (8.8-10.2); CREATININE FOR GFR 2.59 MG/DL (0.55-1.30); GLOMERULAR FILTRATION RATE 19.9 (>45); POTASSIUM SERUM 4.6 MEQ/L (3.5-5.1)
[2018-10-10] MEDS: MONTELUKAST 10 MG TAB PO SCH (20:16)
[2018-10-10] MEDS: SERTRALINE HCL 50 MG TAB PO SCH (20:17)
[2018-10-10] MEDS: LISINOPRIL 5 MG TAB PO SCH (20:17)
[2018-10-10] MEDS: amLODIPine 5 MG TAB PO SCH (20:18)
[2018-10-10] MEDS: LEVEMIR (INSULIN DETEMIR) 1 UNITS/0.01ML SC SCH (20:19)
[2018-10-10 22:00] VITALS: BP_SYST 132; BP_SYST 141; BP_DIAS 72; BP_DIAS 73
[2018-10-11] MEDS: PERCOCET 5MG/325MG TAB PO PRN ×3 (00:34→14:18)
[2018-10-11] MEDS ORDERED: XARE10TA PO (05:56)
[2018-10-11 06:00] VITALS: BP 158/89
--- NOTE | 2018-10-11 07:28 | ECGEPIP ---
Stationary ECG Study [facility] Test Date: 2018-10-10 Pat Name: INGRID HILL Department: Room: [place] [address] Gender: F [employer]st: : [id number] Requested By: FARA TURNER Order Number: [id number] Reading MD: Prashanth Castaneda Measurements Intervals [place] Rate: 75 P: 43 CT: 186 QRS: -17 QRSD: 93 T: 37 QT: 410 QTc: 459 Interpretive Statements SINUS RHYTHM Delayed anterior R wave progression Suspected Prior inferior wall DC, age indeterminate Suspected Anteroseptal [place], age indeterminate Similar to tracing done 09-02-18 Electronically Signed On 10-11-2018 7:28:27 EST by Prashanth Castaneda
[2018-10-11 07:42] LABS: CREATININE FOR GFR 2.5 MG/DL (0.55-1.30); GLOMERULAR FILTRATION RATE 20.8 (>45); POTASSIUM SERUM 5.1 MEQ/L (3.5-5.1)
[2018-10-11] MEDS ORDERED: MS C15TA8 PO (08:36)
[2018-10-11 08:58] VITALS: BP 148/79
[2018-10-11] MEDS: CYCLOBENZAPRINE 10 MG TAB PO SCH ×3 (09:02→21:01)
[2018-10-11] MEDS: DOXAZOSIN MESYLATE 1 MG TAB PO SCH (09:02)
[2018-10-11] MEDS: VITAMIN D 1,000 INTERNATIONAL UNITS TABLET PO SCH (09:03)
[2018-10-11] MEDS: ROSUVASTATIN 10 MG TAB (CRESTOR) PO SCH (09:03)
[2018-10-11] MEDS: MIRALAX *UNIT DOSE* 17GM PACKET PO SCH (09:03)
[2018-10-11] MEDS: amLODIPine 5 MG TAB PO SCH ×2 (09:03→21:02)
[2018-10-11] MEDS: HumaLOG INSULIN (NovoLOG) PER UNIT SC SCH ×4 (09:03→21:00)
[2018-10-11] MEDS: FERROUS SULFATE 325MG TAB PO SCH ×2 (09:04→21:01)
[2018-10-11] MEDS: MOM 30ML SUSPENSION UDC PO SCH (09:04)
[2018-10-11] MEDS: FENOFIBRATE 48 MG TAB (TRICOR) PO SCH (09:04)
[2018-10-11] MEDS: MORPHINE 15 MG SA TAB PO SCH ×2 (09:04→21:01)
[2018-10-11] MEDS: METOPROLOL SUCC (TopROL XL) 50MG **XL** TAB PO SCH (09:04)
--- NOTE | 2018-10-11 12:55 | IPNPDOC ---
Text Note Date of Service The patient was seen on 10/11/18. NOTE Subjective: She was interviewed and examined at bedside this morning. She continues to complain of inadequately controlled right leg pain status post day 2 of right total knee replacement. Patient was a requesting a returned to IV morphine. A detailed conversation was had with the patient explaining the rationale behind her transition to by mouth medication. Other than her pain, patient denies other symptomatology including: Chest pain/pressure, palpitations, trouble breathing, headache or altered sensorium. Objective: Vitals: (see below) GENERAL: Awake, Alert and oriented, able to participate in her care, no acute distress HEENT Exam: Mucous membranes are moist, sclera are non-icteric NECK: Supple, no JVD appreciated CARDIOVASCULAR: Regular rate and rhythm. No murmurs, rubs, gallops. LUNGS: Clear to auscultation bilaterally. ABDOMEN: Soft, nontender, obese, nondistended. EXTREMITIES: The patient's right lower extremity is wrapped from the recent surgery. PT pulse 2+ in left lower extremity. NEUROLOGY: She is awake, alert and oriented times three, follows commands. No focal neurologic deficits. SKIN: Warm, dry, no visible bruising. PSYCHIATRIC: Mood and affect are appropriate for the patient's condition. Labs (see below) Images: R knee XR (10/09/18): s/p right knee arthroplasty EKG (10/11/18): Delayed anterior R wave progression. Suspected Prior inferior wall [place], age indeterminate. Suspected Anteroseptal [place], age indeterminate. Similar to tracing done 09-02-18 Assessment/Plan: Ms. Monica Bone is a 63-year-old female with past medical history of diabetes, hypertension, chronic kidney disease now status post right total knee replacement who we have been consulted for postoperative medical management. 1. Diabetes. - At this time the patient is not eating as usual, therefore she had been placed on a sliding scale and her home Tresiba and oral hyperglycemics have been held. As her oral intake improves, she can be resumed on the equivalent of Tresiba. 2. Chronic kidney disease. - Cr 2.58, per the medical record, these appears to be close to her baseline. - Patient is followed with Dr. Baez in [place] who has confirmed baseline Cr of roughly 2.5. 3. Hyperkalemia: - Potassium of 5.1 following administration of Ca gluconate and Veltassa yesterday evening. - EKG does not demonstrate any electrolyte abnormalities. - Continue to monitor with daily CMP 3. Hypertension. - Blood pressure stable - Patient continued on home medications of lisinopril and amlodipine. 4. Pain control for day 2 s/p Right total knee replacement - Per orthopedics. DVT prophy: per orthopedics Dispo: Per orthopedics VS,Fishbone, I+O VS, Fishbone, I+O Laboratory Tests 10/10/18 06:51 Red Blood Count 3.31 L, Mean Corpuscular Volume 89.7, Mean Corpuscular Hemoglobin 28.7, Mean Corpuscular Hemoglobin Concent 32.0, Red Cell Distribution Width 12.3, Calcium Level 8.4 L 10/10/18 18:58 Calcium Level 8.9 Vital Signs Date Time Temp Pulse Resp B/P (MAP) Pulse Ox O2 Delivery O2 Flow Rate FiO2 10/11/18 01:04 18 10/10/18 22:00 98.6 76 132/73 (92) 96 10/09/18 16:40 Room Air 10/09/18 13:50 2 I&O- Last 24 Hours up to 6 AM 10/11/18 06:00 Intake Total 1380 ml Output Total 1100 ml Balance 280 ml GME ATTESTATION GME ATTESTATION My faculty preceptor for this patient encounter was physically present during the encounter and was fully available. All aspects of the patient interview, examination, medical decision making process, and medical care plan development were reviewed and approved by the faculty preceptor. The faculty preceptor is aware and concurs with the plan as stated in the body of this note and will attest to such by his/her cosignature. FARA TURNER DO Oct 11, 2018 06:26
[2018-10-11 14:00] VITALS: BP 151/71
[2018-10-11] MEDS: RIVAROXABAN 10 MG TAB (XARELTO) PO SCH (17:43)
[2018-10-11] MEDS ORDERED: zolPIDEM TARTRATE 5 MG TAB PO ONE (19:00)
[2018-10-11] MEDS: LEVEMIR (INSULIN DETEMIR) 1 UNITS/0.01ML SC SCH (21:00)
[2018-10-11] MEDS: SERTRALINE HCL 50 MG TAB PO SCH (21:01)
[2018-10-11] MEDS: MONTELUKAST 10 MG TAB PO SCH (21:03)
[2018-10-11 22:00] VITALS: BP 148/70
[2018-10-12] MEDS: PERCOCET 5MG/325MG TAB PO PRN (03:11)
[2018-10-12 06:00] VITALS: BP 136/62
[2018-10-12 07:01] LABS: CALCIUM LEVEL 8.6 MG/DL (8.8-10.2); CREATININE FOR GFR 2.51 MG/DL (0.55-1.30); GLOMERULAR FILTRATION RATE 20.7 (>45)
--- NOTE | 2018-10-12 09:32 | IPNPDOC ---
Text Note Date of Service The patient was seen on 10/12/18. NOTE Subjective: She was interviewed and examined at bedside this morning. Per patient, her right leg pain remains inadequately controlled with PO Percocet status post day 3 of right total knee replacement. Yesterday, patient complained on R knee muscle spasms and received cyclobenzaprine with good relief. Lsat evening, patient requested zolpidem and reports a restful nights sleep. She continues to eat and drink without difficulty. Stooling/voiding appropriately. Potassium remains stable at 5. Cr stable at 2.5, which is patient's baseline. She is afebrile, pressures stable on amlodipine 5 mg BID. Other than her R knee pain, patient denies other symptomatology including: Chest pain/pressure, palpitations, trouble breathing, headache or altered sensorium, increased swelling. Objective: Vitals: (see below) GENERAL: Awake, Alert and oriented, able to participate in her care, no acute distress HEENT Exam: Mucous membranes are moist, sclera are non-icteric, EOMI NECK: Supple, no JVD appreciated CARDIOVASCULAR: Regular rate and rhythm. No murmurs, rubs, gallops. LUNGS: Clear to auscultation bilaterally. ABDOMEN: Soft, nontender, obese, nondistended. EXTREMITIES: The patient's right lower extremity is no longer wrapped from the recent surgery, incision covered with foam. No apparent erythema, blood or drainage. PT pulse 2+ in lower extremity bilaterally. NEUROLOGY: She is awake, alert and oriented times three, follows commands. No focal neurologic deficits. SKIN: Warm, dry, no visible bruising. PSYCHIATRIC: Mood and affect are appropriate for the patient's condition. Labs (see below) Images: R knee XR (10/09/18): s/p right knee arthroplasty EKG (10/11/18): Delayed anterior R wave progression. Suspected Prior inferior wall [place], age indeterminate. Suspected Anteroseptal [place], age indeterminate. Similar to tracing done 09-02-18 Assessment/Plan: Ms. Monica Bone is a 63-year-old female with past medical history of diabetes, hypertension, chronic kidney disease now status post right total knee replacement who we have been consulted for postoperative medical management. 1. Diabetes. - Continue on sliding scale - Blood sugar remains elevated (177 - 179) yesterday 2. Chronic kidney disease. - Cr 2.51, per the medical record, these appears to be close to her baseline. - Patient is followed with Dr. Baez in [place] who has confirmed baseline Cr of roughly 2.5. 3. Hyperkalemia: - Potassium of 5.0 today following administration of Ca gluconate and Veltassa on 10/10/18 - EKG does not demonstrate any electrolyte abnormalities. - Continue to monitor with daily CMP 3. Hypertension. - Blood pressure stable - Patient continued on home medications of lisinopril and amlodipine. 4. Pain control for day 2 s/p Right total knee replacement - Per orthopedics. DVT prophy: per orthopedics Dispo: Per orthopedics VS,Fishbone, I+O VS, Fishbone, I+O Laboratory Tests 10/12/18 06:07 Calcium Level 8.6 L Vital Signs Date Time Temp Pulse Resp B/P (MAP) Pulse Ox O2 Delivery O2 Flow Rate FiO2 10/12/18 06:00 98.2 89 21 136/62 (86) 90 10/09/18 16:40 Room Air 10/09/18 13:50 2 I&O- Last 24 Hours up to 6 AM 10/12/18 06:00 Intake Total 860 ml Output Total 1000 ml Balance -140 ml GME ATTESTATION GME ATTESTATION My faculty preceptor for this patient encounter was physically present during the encounter and was fully available. All aspects of the patient interview, examination, medical decision making process, and medical care plan development were reviewed and approved by the faculty preceptor. The faculty preceptor is aware and concurs with the plan as stated in the body of this note and will attest to such by his/her cosignature. FARA TURNER DO Oct 12, 2018 07:19
[2018-10-12] MEDS: MOM 30ML SUSPENSION UDC PO SCH (09:59)
[2018-10-12] MEDS: DOXAZOSIN MESYLATE 1 MG TAB PO SCH (09:59)
[2018-10-12 10:00] VITALS: BP 110/67
[2018-10-12] MEDS: MORPHINE 15 MG SA TAB PO SCH ×2 (10:00→21:31)
[2018-10-12] MEDS: CYCLOBENZAPRINE 10 MG TAB PO SCH ×3 (10:01→21:30)
[2018-10-12] MEDS: FENOFIBRATE 48 MG TAB (TRICOR) PO SCH (10:01)
[2018-10-12] MEDS: ROSUVASTATIN 10 MG TAB (CRESTOR) PO SCH (10:01)
[2018-10-12] MEDS: FERROUS SULFATE 325MG TAB PO SCH ×2 (10:01→21:31)
[2018-10-12] MEDS: amLODIPine 5 MG TAB PO SCH ×2 (10:01→21:33)
[2018-10-12] MEDS: METOPROLOL SUCC (TopROL XL) 50MG **XL** TAB PO SCH (10:02)
[2018-10-12] MEDS: VITAMIN D 1,000 INTERNATIONAL UNITS TABLET PO SCH (10:02)
[2018-10-12] MEDS: MIRALAX *UNIT DOSE* 17GM PACKET PO SCH (10:02)
[2018-10-12] MEDS: HumaLOG INSULIN (NovoLOG) PER UNIT SC SCH ×4 (10:22→21:00)
[2018-10-12 14:00] VITALS: BP 114/67
[2018-10-12] MEDS: ACETAMINOPHEN TAB 650MG DOSE (2X325MG) PO PRN ×2 (14:15→21:53)
[2018-10-12] MEDS: RIVAROXABAN 10 MG TAB (XARELTO) PO SCH (17:01)
[2018-10-12] MEDS: LEVEMIR (INSULIN DETEMIR) 1 UNITS/0.01ML SC SCH (21:00)
[2018-10-12] MEDS: SERTRALINE HCL 50 MG TAB PO SCH (21:30)
[2018-10-12] MEDS: MONTELUKAST 10 MG TAB PO SCH (21:31)
[2018-10-12 22:30] VITALS: BP 163/79; O2SAT 96
[2018-10-12] MEDS ORDERED: PIPERACILLIN/TAZOBACTAM SOD 2.25 GM in D5W MINI-BAG PLUS 50 ML IV ONE (23:00)
[2018-10-12] MEDS ORDERED: VANCOMYCIN HCL 1,000 MG in IV FLUID PLACE HOLDER 1 EA IV ONE (23:00)
[2018-10-12] MEDS ORDERED: NS 1,000 ML IV ONE (23:00)
[2018-10-12] MEDS ORDERED: VANCOMYCIN HCL 1,000 MG, VIAL MATE ADAPTER 1 EACH in D5W 250 ML IV ONE (23:15)
[2018-10-13] MEDS: PERCOCET 5MG/325MG TAB PO PRN ×4 (00:13→23:13)
--- NOTE | 2018-10-13 03:11 | REPVR ---
EXAM: XR Chest, 1 View EXAM DATE/TIME: 10/12/2018 11:35 PM CLINICAL HISTORY: 63 years old, female; Signs and symptoms; Fever TECHNIQUE: XR of the chest, 1 view. COMPARISON: CR Chest, 2 view PA, Lat 09/02/2018 11:16 AM FINDINGS: Lungs: Decreased inflation of the lungs. Pleural space: Unremarkable. No pleural effusion. No pneumothorax. Heart/Mediastinum: Unremarkable. No cardiomegaly. Bones/joints: Unremarkable. Soft tissues: Surgical clips in the left axilla. IMPRESSION: Essentially stable poor inspiratory chest since 09/02/2018. Electronically signed by: Jose Montoya On 10/13/2018 03:10:58 AM
[2018-10-13 06:00] VITALS: BP 96/53
[2018-10-13] MEDS ORDERED: PERC5TAB12 PO (06:37)
[2018-10-13] MEDS ORDERED: XARE10TA PO (06:37)
[2018-10-13] MEDS ORDERED: CYCL10TA PO (06:37)
[2018-10-13 06:49] LABS: HEMATOCRIT 26.5 % (36.0-47.0); HEMOGLOBIN 8.4 g/dl (12.0-15.5); MEAN CORPUSCULAR HEMOGLOBIN 28.9 pg (27.0-33.0); MEAN CORPUSCULAR HGB CONC 31.7 g/dl (32.0-36.5); MEAN CORPUSCULAR VOLUME 91.1 fl (80.0-96.0); PLATELET COUNT, AUTOMATED 238 10^3/uL (150-450); RED BLOOD COUNT 2.91 10^6/uL (4.00-5.40); WHITE BLOOD COUNT 10.2 10^3/uL (4.0-10.0)
[2018-10-13 06:58] LABS: CALCIUM LEVEL 8.6 MG/DL (8.8-10.2); CREATININE FOR GFR 2.95 MG/DL (0.55-1.30); GLOMERULAR FILTRATION RATE 17.2 (>45); POTASSIUM SERUM 4.7 MEQ/L (3.5-5.1)
[2018-10-13] MEDS: DOXAZOSIN MESYLATE 1 MG TAB PO SCH (09:00)
[2018-10-13] MEDS: amLODIPine 5 MG TAB PO SCH (09:00)
[2018-10-13] MEDS: METOPROLOL SUCC (TopROL XL) 50MG **XL** TAB PO SCH (09:00)
[2018-10-13] MEDS: HumaLOG INSULIN (NovoLOG) PER UNIT SC SCH ×4 (09:01→21:46)
[2018-10-13] MEDS: MIRALAX *UNIT DOSE* 17GM PACKET PO SCH (09:02)
[2018-10-13] MEDS: FERROUS SULFATE 325MG TAB PO SCH ×2 (09:02→21:45)
[2018-10-13] MEDS: CYCLOBENZAPRINE 10 MG TAB PO SCH ×3 (09:03→21:45)
[2018-10-13] MEDS: MOM 30ML SUSPENSION UDC PO SCH (09:03)
[2018-10-13] MEDS: FENOFIBRATE 48 MG TAB (TRICOR) PO SCH (09:03)
[2018-10-13] MEDS: VITAMIN D 1,000 INTERNATIONAL UNITS TABLET PO SCH (09:03)
[2018-10-13] MEDS: ROSUVASTATIN 10 MG TAB (CRESTOR) PO SCH (09:03)
[2018-10-13] MEDS ORDERED: LIDOCAINE 1% MDV 20ML VIAL ONE (11:25)
[2018-10-13] MEDS ORDERED: BUPIVACAINE/EPIN 0.25% 30 ML VIAL ONE (11:25)
--- NOTE | 2018-10-13 13:28 | REP ---
CT of the chest without IV contrast: Comparison is the portable plain film study of 10/12/2018. There are no infiltrates. There are no pleural effusions. There are no masses or nodules. There is no mediastinal lymph node enlargement. There is no axillary lymph node enlargement. In the absence of IV contrast the study is insensitive for hilar lymph node enlargement. The unenhanced thoracic aorta is unremarkable. Cardiac size is normal. The visualized unenhanced upper abdominal contents are unremarkable. Impression: Essentially negative CT study of the chest without IV contrast. Electronically Signed by Casimiro Melo MD 10/13/2018 01:19 P
[2018-10-13 14:00] VITALS: BP 131/61
--- NOTE | 2018-10-13 14:11 | IPNPDOC ---
Date Seen The patient was seen on 10/13/18. Progress Note SUBJECTIVE: Tmax 101.5 last night no c/o cough, dysuria, urgency, frequency , or chills. night team gave 1 dose of iv vanco and iv zosyn. repeat cxr: no infiltrate. ct chest: no consolidation or infiltrate. blood cx pending. afebrile . lethargic pain meds managed by ortho. c/o thirst. s/p iv fluids. urine cx pending. PHYSICAL EXAM: VITAL SIGNS: PLS SEE BELOW GEN: moaning at the bedside asking for pain meds. lethargic but answers questions appropriately HEENT Exam: Oropharynx is clear. NECK: Supple. CARDIOVASCULAR: Regular rate and rhythm. No murmurs, rubs, gallops. LUNGS: Clear to auscultation bilaterally. ABDOMEN: Soft, nontender, obese, nondistended. EXTREMITIES:postop right lower knee with no erythema tenderness or drainage. NEUROLOGY: She is awake, alert and oriented times three, follows simple commands. No focal neurologic deficits. PSYCHIATRIC: Mood stable. LABORATORY DATA, imaging , microbiology: reviewed, pls see below ASSESSMENT AND PLAN: This is a 63-year-old female with past medical history of diabetes, chronic kidney disease (CKD), hypertension, prior history of breast cancer status post lumpectomy, hyperlipidemia who presents status post right total knee replacement today for medical management. The patient currently not having any complaints. Her blood pressures have been adequately controlled on the unit. She says her pain is currently controlled. She follows with Dr. Baez for her chronic kidney disease. Right knee replacement: wound care, pain control, dvt prophylaxis per orhtopedic surgery Postop Fever: DDX: atelectasis, UTI,pneumonia, wound infection s/p 1 dose of vanco, zosyn. will monitor clinically . no empiric abx awaiting cultures and lactic acid CT chest negative. Diabetes. consistent carbs diet. insulin sliding scale hypoglycemic protocol Chronic kidney disease.at baseline creatinine. renally dose meds. serial bmp Hypertension. titrate med for better control hyperkalemia in the setting of ckd3 serial bmp. 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 Acute delirium with lethargy due to pain meds, adjusted by ortho hyperlipidemia History of breast ca s/p lumpectomy dvt prophylaxis: per ortho on eliquis VS, I&O, 24H, Fishbone Vital Signs/I&O Vital Signs Date Time Temp Pulse Resp B/P (MAP) Pulse Ox O2 Delivery O2 Flow Rate FiO2 10/13/18 13:10 18 10/13/18 06:00 98.0 84 96/53 (67) 95 10/12/18 22:30 Room Air 10/09/18 13:50 2 I&O- Last 24 Hours up to 6 AM 10/13/18 06:00 Intake Total 1580 ml Output Total 1150 ml Balance 430 ml Laboratory Data 24H LABS Laboratory Tests 2 10/12/18 16:32: Bedside Glucose (Misc Panel) 184H 10/12/18 22:39: Bedside Glucose (Misc Panel) 198H 10/12/18 23:14: Urine Color YELLOW, Urine Appearance CLEAR, Urine pH 5.0, Urine Specific [place] 1.010, Urine Protein 1+H, Urine Glucose (UA) NEGATIVE, Urine Ketones NEGATIVE, Urine Blood NEGATIVE, Urine Nitrite NEGATIVE, Urine Bilirubin NEGATIVE, Urine Urobilinogen 0.2, Urine Leukocyte Esterase NEGATIVE, Urine WBC (Auto) 1, Urine RBC (Auto) 0, Urine Hyaline Casts (Auto) 0, Urine Bacteria (Auto) NEGATIVE, Uri ne Squamous Epithelial Cells 1, Urine Mucus (Auto) SMALL, Urine Sperm (Auto) 10/13/18 06:05: Nucleated Red Blood Cells % (auto) 0.0, Anion Gap 7L, Glomerular Filtration Rate 17.2L, Blood Urea Nitrogen 49H, Creatinine 2.95H, Sodium Level 136, Potassium Level 4.7, Chloride Level 106, Carbon Dioxide Level 23, Calcium Level 8.6L 10/13/18 12:03: Bedside Glucose (Misc Panel) 179H CBC/BMP Laboratory Tests 10/13/18 06:05 Red Blood Count 2.91 L, Mean Corpuscular Volume 91.1, Mean Corpuscular Hemoglobin 28.9, Mean Corpuscular Hemoglobin Concent 31.7 L, Red Cell Distribution Width 11.9, Calcium Level 8.6 L Microbiology Microbiology 10/12/18 Blood Culture, Received Pending ERNIE RIBEIRO MD Oct 13, 2018 14:11
[2018-10-13] MEDS: RIVAROXABAN 10 MG TAB (XARELTO) PO SCH (17:01)
[2018-10-13] MEDS: MONTELUKAST 10 MG TAB PO SCH (21:44)
[2018-10-13] MEDS: SERTRALINE HCL 50 MG TAB PO SCH (21:45)
[2018-10-13] MEDS: LEVEMIR (INSULIN DETEMIR) 1 UNITS/0.01ML SC SCH (21:46)
[2018-10-13 22:00] VITALS: BP 129/65
[2018-10-14] MEDS: ACETAMINOPHEN TAB 650MG DOSE (2X325MG) PO PRN (01:16)
[2018-10-14 01:24] VITALS: O2SAT 93
[2018-10-14 06:00] VITALS: BP 138/63
[2018-10-14 07:46] LABS: CALCIUM LEVEL 8.7 MG/DL (8.8-10.2); CREATININE FOR GFR 2.9 MG/DL (0.55-1.30); GLOMERULAR FILTRATION RATE 17.5 (>45); POTASSIUM SERUM 5.1 MEQ/L (3.5-5.1)
[2018-10-14] MEDS: MIRALAX *UNIT DOSE* 17GM PACKET PO SCH (08:15)
[2018-10-14] MEDS: DOXAZOSIN MESYLATE 1 MG TAB PO SCH (08:15)
[2018-10-14] MEDS: CYCLOBENZAPRINE 10 MG TAB PO SCH ×3 (08:15→20:36)
[2018-10-14] MEDS: MOM 30ML SUSPENSION UDC PO SCH (08:15)
[2018-10-14] MEDS: VITAMIN D 1,000 INTERNATIONAL UNITS TABLET PO SCH (08:15)
[2018-10-14] MEDS: FERROUS SULFATE 325MG TAB PO SCH ×2 (08:16→20:37)
[2018-10-14] MEDS: ROSUVASTATIN 10 MG TAB (CRESTOR) PO SCH (08:16)
[2018-10-14] MEDS: FENOFIBRATE 48 MG TAB (TRICOR) PO SCH (08:17)
[2018-10-14] MEDS: PERCOCET 5MG/325MG TAB PO PRN (08:17)
[2018-10-14] MEDS: METOPROLOL SUCC (TopROL XL) 50MG **XL** TAB PO SCH (08:17)
[2018-10-14] MEDS: HumaLOG INSULIN (NovoLOG) PER UNIT SC SCH ×4 (08:18→20:37)
[2018-10-14] MEDS: MORPHINE 15 MG SA TAB PO SCH (09:00)
[2018-10-14 09:46] VITALS: BP 128/65
[2018-10-14] MEDS ORDERED: ACETAMINOPHEN 500 MG TAB PO SCH (10:45)
[2018-10-14] MEDS ORDERED: traMADol 50 MG TAB PO PRN (10:45)
--- NOTE | 2018-10-14 13:30 | IPNPDOC ---
Text Note Date of Service The patient was seen on 10/14/18. NOTE SUBJECTIVE: Patient interviewed and examined at her bedside this morning. She reports feeling well, but continues to describe inadequate pain control for her knee. On 10/12/18 the patient did have a MAXIMUM TEMPERATURE of 101.5 without cough, dysuria, urgency, frequency, chills. Patient was given a one-time dose of IV vancomycin and IV Zosyn. Repeat x-ray didn't and chest CT did not indicate any consolidation or infiltration. Blood cultures were obtained and are negative after 24 hours. Respiratory PCR is negative. UA negative for signs of infection. This morning, the patient continues to deny any fevers, chills, cough, dysuria. She denies shortness of breath and chest pain/pressure. She has remained afebrile since Sunday night. PHYSICAL EXAM: VITAL SIGNS: PLS SEE BELOW GEN: moaning at the bedside asking for pain meds. lethargic but answers questions appropriately HEENT Exam: Oropharynx is clear. His membranes are moist, sclerae nonicteric, PERRLA, EOMI NECK: Supple. No lymphadenopathy CARDIOVASCULAR: Regular rate and rhythm. No murmurs, rubs, gallops. LUNGS: Clear to auscultation bilaterally. ABDOMEN: Soft, nontender, obese, nondistended. EXTREMITIES:postop right lower knee with bandage. Mild tenderness. No erythema, or drainage. NEUROLOGY: She is awake, alert and oriented times three, follows simple commands. No focal neurologic deficits. PSYCHIATRIC: Mood and affect are congruent LABORATORY DATA, imaging , microbiology: reviewed, pls see below ASSESSMENT AND PLAN: This is a 63-year-old female with past medical history of diabetes, chronic kidney disease (CKD), hypertension, prior history of breast cancer status post lumpectomy, hyperlipidemia who presents status post right total knee replacement today for medical management. The patient currently not having any complaints. Her blood pressures have been adequately controlled on the unit. She says her pain is currently controlled. She follows with Dr. Baez for her chronic kidney disease. 1. Right knee replacement: -Wound care, pain control, dvt prophylaxis per orhtopedic surgery 2. Postop Fever: -Differential diagnosis includes postop atelectasis, UTI, pneumonia, wound infec tion. At this time the patient has remained afebrile, very minimal leukocytosis of 10.2. Chest x-ray and chest CT negative for any acute processes. Respiratory PCR is negative. Blood culture negative after 24 hours. Patient is status post a single dose of Vanco/Zosyn. -Will monitor clinically 3. Diabetes. -Consistent carbs diet. -Insulin sliding scale hypoglycemic protocol 4. Chronic kidney disease -Patient is at baseline creatinine. -Cotntinue to renally dose medications -Monitor serial CMP 5. Hypertension. titrate med for better control 6. Hyperkalemia in the setting of CKD3 - Daily bmp. 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 Acute delirium - With lethargy due to pain meds, adjusted by ortho 8. hyperlipidemia 9. History of breast ca s/p lumpectomy dvt prophylaxis: per ortho on eliquis VS,Fishbone, I+O VS, Fishbone, I+O Laboratory Tests 10/14/18 06:22 Calcium Level 8.7 L Vital Signs Date Time Temp Pulse Resp B/P (MAP) Pulse Ox O2 Delivery O2 Flow Rate FiO2 10/14/18 09:46 98.8 92 18 128/65 (86) 90 10/14/18 01:24 BIPAP/CPAP 10/09/18 13:50 2 I&O- Last 24 Hours up to 6 AM 10/14/18 06:00 Intake Total 1800 ml Output Total 2050 ml Balance -250 ml GME ATTESTATION GME ATTESTATION My faculty preceptor for this patient encounter was physically present during the encounter and was fully available. All aspects of the patient interview, examination, medical decision making process, and medical care plan development were reviewed and approved by the faculty preceptor. The faculty preceptor is aware and concurs with the plan as stated in the body of this note and will attest to such by his/her cosignature. FARA TURNER DO Oct 14, 2018 13:30
[2018-10-14 14:00] VITALS: BP 130/61
[2018-10-14] MEDS: RIVAROXABAN 10 MG TAB (XARELTO) PO SCH (18:15)
[2018-10-14 18:38] VITALS: O2SAT 91
[2018-10-14] MEDS ORDERED: ACETAMINOPHEN 500 MG TAB PO ONE (20:00)
[2018-10-14] MEDS: LEVEMIR (INSULIN DETEMIR) 1 UNITS/0.01ML SC SCH (20:36)
[2018-10-14] MEDS: MONTELUKAST 10 MG TAB PO SCH (20:37)
[2018-10-14] MEDS: SERTRALINE HCL 50 MG TAB PO SCH (20:37)
[2018-10-14] MEDS: traMADol 50 MG TAB PO PRN (20:38)
[2018-10-14 22:00] VITALS: BP 124/67
[2018-10-14] MEDS ORDERED: SUCRALFATE 1 GM TAB PO PRN (23:15)
[2018-10-15] MEDS: traMADol 50 MG TAB PO PRN (00:54)
[2018-10-15 06:00] VITALS: BP 171/79
[2018-10-15] MEDS ORDERED: ACETAMINOPHEN 500 MG TAB PO SCH (06:00)
[2018-10-15] MEDS ORDERED: FLEET ENEMA PR PRN (06:30)
[2018-10-15] MEDS ORDERED: MAGNESIUM CITRATE 300 ML BTL PO ONE (07:00)
[2018-10-15 07:27] LABS: CALCIUM LEVEL 8.8 MG/DL (8.8-10.2); CREATININE FOR GFR 2.73 MG/DL (0.55-1.30); GLOMERULAR FILTRATION RATE 18.8 (>45); POTASSIUM SERUM 4.6 MEQ/L (3.5-5.1)
[2018-10-15] MEDS: HumaLOG INSULIN (NovoLOG) PER UNIT SC SCH ×2 (07:30→11:58)
[2018-10-15] MEDS ORDERED: OMEPRAZOLE 20 MG CAP PO SCH (09:00)
[2018-10-15] MEDS ORDERED: PANTOPRAZOLE 40MG TAB (PROTONIX) PO SCH (09:00)
[2018-10-15] MEDS: VITAMIN D 1,000 INTERNATIONAL UNITS TABLET PO SCH (09:23)
[2018-10-15] MEDS: DOXAZOSIN MESYLATE 1 MG TAB PO SCH (09:23)
--- NOTE | 2018-10-15 09:23 | IPNPDOC ---
Text Note Date of Service The patient was seen on 10/15/18. NOTE SUBJECTIVE: Patient was interviewed and examined at her bedside this morning on the [facility] floor. Last evening the patient did complain of reflux symptoms. She was given pantoprazole 40 mg scheduled. Patient is in improved spirits this morning. She reports that her pain has now been adequately controlled. She has had a restful night's sleep. She has been ambulating. She reports no difficulties urinating or with her bowel movements. She continues to deny cough, dysuria, urgency, frequency, chills. She does not have chest pain or trouble breathing. Patient interviewed and examined at her bedside this morning. She reports feeling well, but continues to describe inadequate pain control for her knee. On 10/12/18 the patient did have a MAXIMUM TEMPERATURE of 101.5 without cough, dysuria, urgency, frequency, chills. Patient was given a one-time dose of IV vancomycin and IV Zosyn. Repeat x-ray didn't and chest CT did not indicate any consolidation or infiltration. Blood cultures were obtained and are negative after 24 hours. Respiratory PCR is negative. UA negative for signs of infection. This morning, the patient continues to deny any fevers, chills, cough, dysuria. She denies shortness of breath and chest pain/pressure. She has remained afebrile since Sunday. PHYSICAL EXAM: VITAL SIGNS: PLS SEE BELOW GEN: Alert and oriented, in no acute distress, we'll to participate in her care HEENT Exam: Oropharynx is clear. His membranes are moist, sclerae nonicteric, PERRLA, EOMI NECK: Supple. No lymphadenopathy CARDIOVASCULAR: Regular rate and rhythm. No murmurs, rubs, gallops. LUNGS: Clear to auscultation bilaterally. ABDOMEN: Soft, nontender, obese, nondistended. EXTREMITIES:postop right lower knee with intact bandage. Mild tenderness. No erythema, or drainage. NEUROLOGY: She is awake, alert and oriented times three, follows simple commands. No focal neurologic deficits. PSYCHIATRIC: Mood and affect are congruent LABORATORY DATA, imaging , microbiology: reviewed, pls see below ASSESSMENT AND PLAN: This is a 63-year-old female with past medical history of diabetes, chronic kidney disease (CKD), hypertension, prior history of breast cancer status post lumpectomy, hyperlipidemia who presents status post right total knee replacement today for medical management. The patient currently not having any complaints. Her blood pressures have been adequately controlled on the unit. She says her pain is currently controlled. She follows with Dr. Baez for her chronic kidney disease. 1. Right knee replacement: -Wound care, pain control, dvt prophylaxis per orthopedic surgery 2. Postop Fever: -. On the evening of 10/12/18, patient developed a fever of 101.5F. She was given a single dose of IV vancomycin and his IV Zosyn. Differential diagnosis includes postop atelectasis, UTI, pneumonia, wound infection. Causes of infection were investigated. Chest x-ray and chest CT did not indicate any consolidation or infiltration. Blood cultures have remained negative after 48 hours. Respiratory PCR is negative. UA is negative for infection. Patient does not demonstrate a leukocytosis. She has remained afebrile since. 3. Diabetes. -Consistent carbs diet. -Insulin sliding scale hypoglycemic protocol 4. Chronic kidney disease -Patient is at baseline creatinine. -Continue to renally dose medications -Monitor serial CMP 5. Hypertension. - Blood pressure has been controlled. - Titrate med for better control 6. Hyperkalemia in the setting of CKD3 - Daily bmp. 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 Acute delirium - With lethargy due to pain meds, adjusted by ortho 8. hyperlipidemia 9. History of breast ca s/p lumpectomy 10. GERD -Patient started on 40 mg omeprazole OLEG for reflux dvt prophylaxis: per ortho on eliquis Disposition: Patient to be discharged to [facility] for rehabilitation VS,Parish, I+O VS, Divinae, I+O Laboratory Tests 10/15/18 06:37 Calcium Level 8.8 Vital Signs Date Time Temp Pulse Resp B/P (MAP) Pulse Ox O2 Delivery O2 Flow Rate FiO2 10/15/18 06:00 96.8 96 18 171/79 (109) 96 10/14/18 18:38 Room Air 10/09/18 13:50 2 I&O- Last 24 Hours up to 6 AM 10/15/18 06:00 Intake Total 2040 ml Output Total 301 ml Balance 1739 ml GME ATTESTATION GME ATTESTATION My faculty preceptor for this patient encounter was physically present during the encounter and was fully available. All aspects of the patient interview, examination, medical decision making process, and medical care plan development were reviewed and approved by the faculty preceptor. The faculty preceptor is aware and concurs with the plan as stated in the body of this note and will attest to such by his/her cosignature. ATTENDING NOTE I, Deepa Spann, have both independently examined this patient as well as reviewed the documentation. I have discussed in detail with the resident the findings and plan of treatment as documented in the residents documentation. I will continue to follow the patient and offer further guidance to the patients care as necessary during this hospital stay. FARA TURNER DO Oct 15, 2018 09:22 DEEPA SPANN MD Oct 15, 2018 18:47
[2018-10-15 09:24] VITALS: BP 171/79
[2018-10-15] MEDS: ROSUVASTATIN 10 MG TAB (CRESTOR) PO SCH (09:24)
[2018-10-15] MEDS: METOPROLOL SUCC (TopROL XL) 50MG **XL** TAB PO SCH (09:24)
[2018-10-15] MEDS: CYCLOBENZAPRINE 10 MG TAB PO SCH (09:24)
[2018-10-15] MEDS: FENOFIBRATE 48 MG TAB (TRICOR) PO SCH (09:24)
[2018-10-15] MEDS: FERROUS SULFATE 325MG TAB PO SCH (09:24)
[2018-10-15] MEDS: MIRALAX *UNIT DOSE* 17GM PACKET PO SCH (09:34)
[2018-10-15] MEDS: MOM 30ML SUSPENSION UDC PO SCH (09:34)
[2018-10-15 09:45] VITALS: BP 128/65
[2018-10-15 10:15] VITALS: BP 183/77
[2018-10-15 11:35] VITALS: BP 139/70
--- NOTE | 2018-10-17 15:18 | DSES ---
DATE OF ADMISSION: 10/09/2018 DATE OF DISCHARGE: 10/15/2018 ATTENDING PHYSICIAN: Dr. Dionisio Hernandez ADMISSION DIAGNOSIS: Right knee osteoarthritis. OTHER DIAGNOSES: 1. Diabetes. 2. Chronic kidney disease. 3. Hypertension. 4. Hyperlipidemia. 5. History of breast cancer. DISCHARGE DIAGNOSIS: Right knee osteoarthritis status post right total knee arthroplasty. HISTORY: The patient is a 63-year-old female that had progressively worsening right knee pain and stiffness. She failed to improve with conservative measures. She continued to have symptoms in the right knee with weightbearing activities and activities of daily living. She consented for an elective right total knee arthroplasty with Dr. Hernandez for her continued symptoms. OPERATION PERFORMED: Right total knee arthroplasty. HOSPITAL COURSE: The patient underwent a right total knee arthroplasty under spinal anesthesia, which was uneventful. During her hospital course, she did develop hyperkalemia with a normal EKG, acute delirium/lethargy due to her pain medication, a postop fever, but was afebrile since a course of IV antibiotics. Workup was negative. She also developed some reflux, which responded to medication. The patient was stable upon discharge and weightbearing as tolerated on the right lower extremity per physical therapy protocol. The patient was discharged on her oral pain medications and will resume her preoperative medications and diet. The patient will use her thromboembolic deterrent stockings and take her anticoagulant as directed for deep venous thrombosis prophylaxis. The patient will followup in our office in approximately 12-14 days for wound check and staple removal. She is encouraged to contact our office sooner if there is any increase in pain, redness, drainage, numbness or tingling in the extremity, fever greater than 101 degrees or any other concerns. Please see medical record for additional details.
== END 2018-10-15 12:28 | DRG 302 ==
LOC: M OR 10-09 11:28 → M MS5PR 10-09 16:40
PROVIDERS: ADMIT Orthopaedic Surgery; ATTEND Orthopaedic Surgery
PROC: 0SRC0J9 Replacement of Right Knee Joint with Synthetic Substitute, Cemented, Open Approach (ICD-10-PCS; principal; 2018-10-09 14:25)
DX: M17.11 Unilateral primary osteoarthritis, right knee (principal); E87.5 Hyperkalemia; N18.3 Chronic kidney disease, stage 3 (moderate); E11.9 Type 2 diabetes mellitus without complications; F32.9 Major depressive disorder, single episode, unspecified; Z79.4 Long term (current) use of insulin; Z85.3 Personal history of malignant neoplasm of breast; Z79.899 Other long term (current) drug therapy; E78.5 Hyperlipidemia, unspecified; I12.9 Hypertensive chronic kidney disease with stage 1 through stage 4 chronic kidney disease, or unspecified chronic kidney disease; Z88.8 Allergy status to other drugs, medicaments and biological substances; R50.82 Postprocedural fever; R41.0 Disorientation, unspecified

== ENCOUNTER → 2018-10-17 | Outpatient (REF) | payer BC ==
[~2018-10-17] MED LIST changes: +CYCL10TA PO; +MS C15TA8 PO; +PERC5TAB12 PO; +XARE10TA PO
[2018-10-17 08:27] LABS: HEMATOCRIT 25.7 % (36.0-47.0); HEMOGLOBIN 8.4 g/dl (12.0-15.5); MEAN CORPUSCULAR HEMOGLOBIN 29.5 pg (27.0-33.0); MEAN CORPUSCULAR HGB CONC 32.7 g/dl (32.0-36.5); MEAN CORPUSCULAR VOLUME 90.2 fl (80.0-96.0); PLATELET COUNT, AUTOMATED 334 10^3/uL (150-450); RED BLOOD COUNT 2.85 10^6/uL (4.00-5.40)
[2018-10-17 11:25] LABS: CALCIUM LEVEL 9.1 MG/DL (8.8-10.2); CREATININE FOR GFR 2.35 MG/DL (0.55-1.30); GLOMERULAR FILTRATION RATE 22.3 (>45); PHOSPHORUS LEVEL 3.9 MG/DL (2.5-4.9); PTH INTACT 172.8 PG/ML (18.5-88.0)
== END ==
DX: D64.9 Anemia, unspecified (principal)

== ENCOUNTER → 2018-10-21 | Outpatient (REF) | payer BC ==
[2018-10-21 11:55] LABS: HEMATOCRIT 27.7 % (36.0-47.0); MEAN CORPUSCULAR HEMOGLOBIN 28.8 pg (27.0-33.0); MEAN CORPUSCULAR HGB CONC 32.5 g/dl (32.0-36.5); MEAN CORPUSCULAR VOLUME 88.8 fl (80.0-96.0); PLATELET COUNT, AUTOMATED 407 10^3/uL (150-450); RED BLOOD COUNT 3.12 10^6/uL (4.00-5.40); WHITE BLOOD COUNT 10.3 10^3/uL (4.0-10.0)
[2018-10-21 12:21] LABS: CREATININE FOR GFR 2.29 MG/DL (0.55-1.30); POTASSIUM SERUM 5.3 MEQ/L (3.5-5.1)
== END ==
DX: D64.9 Anemia, unspecified (principal)

== ENCOUNTER → 2018-10-22 | Outpatient (REF) | DX: E87.6 Hypokalemia (principal) ==

== ENCOUNTER → 2018-10-23 | Outpatient (REF) | payer BC ==
[2018-10-23 09:11] LABS: HEMATOCRIT 28.3 % (36.0-47.0); HEMOGLOBIN 9.2 g/dl (12.0-15.5); MEAN CORPUSCULAR HEMOGLOBIN 28.6 pg (27.0-33.0); MEAN CORPUSCULAR HGB CONC 32.5 g/dl (32.0-36.5); MEAN CORPUSCULAR VOLUME 87.9 fl (80.0-96.0); PLATELET COUNT, AUTOMATED 430 10^3/uL (150-450); RED BLOOD COUNT 3.22 10^6/uL (4.00-5.40); WHITE BLOOD COUNT 10.8 10^3/uL (4.0-10.0)
[2018-10-23 09:22] LABS: CALCIUM LEVEL 9.6 MG/DL (8.8-10.2); CREATININE FOR GFR 2.55 MG/DL (0.55-1.30); GLOMERULAR FILTRATION RATE 20.3 (>45); POTASSIUM SERUM 5.3 MEQ/L (3.5-5.1)
== END ==
DX: Z47.1 Aftercare following joint replacement surgery (principal); Z96.651 Presence of right artificial knee joint

== ENCOUNTER → 2018-10-30 | Outpatient (REF) | payer BC ==
[2018-10-30 09:55] LABS: HEMATOCRIT 29.6 % (36.0-47.0); HEMOGLOBIN 9.7 g/dl (12.0-15.5); MEAN CORPUSCULAR HGB CONC 32.8 g/dl (32.0-36.5); MEAN CORPUSCULAR VOLUME 88.6 fl (80.0-96.0); PLATELET COUNT, AUTOMATED 419 10^3/uL (150-450); RED BLOOD COUNT 3.34 10^6/uL (4.00-5.40); WHITE BLOOD COUNT 9.5 10^3/uL (4.0-10.0)
[2018-10-30 10:15] LABS: CALCIUM LEVEL 9.7 MG/DL (8.8-10.2); CREATININE FOR GFR 2.6 MG/DL (0.55-1.30); GLOMERULAR FILTRATION RATE 19.9 (>45); POTASSIUM SERUM 5.2 MEQ/L (3.5-5.1)
== END ==
DX: Z47.1 Aftercare following joint replacement surgery (principal); Z96.651 Presence of right artificial knee joint

== ENCOUNTER → 2019-01-03 | Outpatient (RCR) | payer BC ==
[~2019-01-03] MED LIST changes: +CRES10TA PO; -CRES10TA32 PO
== END ==
LOC: M PT 12-18 14:07
PROVIDERS: ATTEND Orthopaedic Surgery
DX: Z96.651 Presence of right artificial knee joint (principal); Z47.89 Encounter for other orthopedic aftercare

== ENCOUNTER 2019-01-29 14:28 | Outpatient (RCR) | payer BC | END 2019-02-02 | LOC: M PT 14:28 | PROVIDERS: ATTEND Orthopaedic Surgery | DX: Z96.651 Presence of right artificial knee joint (principal) ==

== ENCOUNTER → 2019-03-05 | Outpatient (RCR) | payer BC | LOC: M PT 02-05 14:50 | PROVIDERS: ATTEND Orthopaedic Surgery | DX: Z47.1 Aftercare following joint replacement surgery (principal); Z96.651 Presence of right artificial knee joint ==

== ENCOUNTER 2019-03-07 14:27 | Outpatient (RCR) | payer BC | END 2019-04-05 | LOC: M PT 14:27 | PROVIDERS: ATTEND Orthopaedic Surgery | DX: Z47.1 Aftercare following joint replacement surgery (principal); Z96.651 Presence of right artificial knee joint ==

== ENCOUNTER → 2019-04-25 | Outpatient (CLI) | payer BC ==
[2019-04-25 15:10] LABS: CALCIUM LEVEL 9.9 MG/DL (8.8-10.2); CREATININE FOR GFR 2.55 MG/DL (0.55-1.30); GLOMERULAR FILTRATION RATE 20.3 (>45); POTASSIUM SERUM 5.7 MEQ/L (3.5-5.1)
== END ==
LOC: M LAB 13:53
PROVIDERS: ATTEND Internal Medicine
DX: N18.3 Chronic kidney disease, stage 3 (moderate) (principal)

== ENCOUNTER → 2019-05-05 | Outpatient (CLI) | payer BC ==
[2019-05-05 13:58] LABS: CREATININE FOR GFR 2.64 MG/DL (0.55-1.30); GLOMERULAR FILTRATION RATE 19.5 (>45); POTASSIUM SERUM 5.2 MEQ/L (3.5-5.1)
== END ==
LOC: M LAB 12:24
PROVIDERS: ATTEND Internal Medicine
DX: N18.3 Chronic kidney disease, stage 3 (moderate) (principal)

== ENCOUNTER → 2019-07-08 | Outpatient (REF) | payer BC ==
[~2019-07-08] MED LIST changes: +FENO48TA13 PO; -FENO48TA2 PO
== END ==
LOC: M LAB REF 17:28
PROVIDERS: ATTEND Surgery
DX: L02.31 Cutaneous abscess of buttock (principal)

== ENCOUNTER → 2019-07-18 | Outpatient (REF) ==
[2019-07-18 16:09] LABS: RUBELLA IgG QUALITATIVE IMMUNE (IMMUNE)
== END ==
LOC: M LAB 14:44
PROVIDERS: ATTEND Nurse Practitioner Adult Health
DX: Z02.89 Encounter for other administrative examinations (principal)

== ENCOUNTER → 2019-07-28 | Outpatient (CLI) | payer BC ==
[2019-07-28 13:24] LABS: CALCIUM LEVEL 9.7 MG/DL (8.8-10.2); CREATININE FOR GFR 2.93 MG/DL (0.55-1.30); GLOMERULAR FILTRATION RATE 17.2 (>45); POTASSIUM SERUM 4.9 MEQ/L (3.5-5.1)
== END ==
LOC: M LAB 12:33
PROVIDERS: ATTEND Internal Medicine
DX: N18.3 Chronic kidney disease, stage 3 (moderate) (principal)

== ENCOUNTER → 2019-08-12 | Outpatient (REF) | payer BC | LOC: M LAB REF 09:44 | PROVIDERS: ATTEND Radiology Diagnostic Radiology | DX: N63.20 Unspecified lump in the left breast, unspecified quadrant (principal) ==

== ENCOUNTER → 2019-09-25 | Outpatient (CLI) | payer BC ==
[~2019-09-25] MED LIST changes: +D-20TAB PO; -FENO48TA13 PO; +FENO48TA7 PO; -MONT10TA2 PO; +MONT10TA4 PO
[2019-09-25 15:34] LABS: CALCIUM LEVEL 10.1 MG/DL (8.8-10.2); CREATININE FOR GFR 2.96 MG/DL (0.55-1.30)
== END ==
LOC: M LAB 13:58
PROVIDERS: ATTEND Internal Medicine
DX: N18.4 Chronic kidney disease, stage 4 (severe) (principal)

== ENCOUNTER → 2019-11-21 | Outpatient (REF) | payer BC ==
[~2019-11-21] MED LIST changes: +CYCL-707 PO; -CYCL10TA PO
[2019-11-21 15:02] LABS: HEMATOCRIT 37.5 % (36.0-47.0); HEMOGLOBIN 12.5 g/dl (12.0-15.5); MEAN CORPUSCULAR HEMOGLOBIN 29.8 pg (27.0-33.0); MEAN CORPUSCULAR HGB CONC 33.3 g/dl (32.0-36.5); MEAN CORPUSCULAR VOLUME 89.3 fl (80.0-96.0); PLATELET COUNT, AUTOMATED 271 10^3/uL (150-450); WHITE BLOOD COUNT 8.9 10^3/uL (4.0-10.0)
[2019-11-21 15:04] LABS: CALCIUM LEVEL 10.1 MG/DL (8.8-10.2); CREATININE FOR GFR 2.69 MG/DL (0.55-1.30); POTASSIUM SERUM 5.1 MEQ/L (3.5-5.1)
[2019-11-21 15:19] LABS: CREATININE,RANDOM URINE 75.6 MG/DL; TOTAL PROTEIN,RANDOM URINE 155.2 MG/DL (0.0-12.0)
== END ==
LOC: M LABDRAW1 14:33
PROVIDERS: ATTEND Internal Medicine
DX: N18.5 Chronic kidney disease, stage 5 (principal)

== ENCOUNTER → 2020-02-20 | Outpatient (CLI) | payer BC ==
[~2020-02-20] MED LIST changes: +AMLO1TAB24 PO; -AMLO5TAB6 PO
[2020-02-20 16:22] LABS: HEMATOCRIT 36.4 % (36.0-47.0); HEMOGLOBIN 11.9 g/dl (12.0-15.5); MEAN CORPUSCULAR HEMOGLOBIN 28.8 pg (27.0-33.0); MEAN CORPUSCULAR HGB CONC 32.7 g/dl (32.0-36.5); MEAN CORPUSCULAR VOLUME 88.1 fl (80.0-96.0); PLATELET COUNT, AUTOMATED 259 10^3/uL (150-450); RED BLOOD COUNT 4.13 10^6/uL (4.00-5.40); WHITE BLOOD COUNT 10.1 10^3/uL (4.0-10.0)
[2020-02-20 16:24] LABS: APPEARANCE, URINE CLEAR (CLEAR); BACTERIA, URINE AUTO NEGATIVE (NEGATIVE); BILIRUBIN, URINE AUTO NEGATIVE (NEGATIVE); BLOOD, URINE BLOOD NEGATIVE (NEGATIVE); COLOR, URINE STRAW (YELLOW); GLUCOSE, URINE (UA) AUTO NEGATIVE (NEGATIVE); KETONE, URINE AUTO NEGATIVE (NEGATIVE); LEUKOCYTE ESTERASE, URINE AUTO NEGATIVE (NEGATIVE); NITRITE, URINE AUTO NEGATIVE (NEGATIVE); PROTEIN, URINE AUTO 2+ mg/dL (NEGATIVE); RBC, URINE AUTO 3 /HPF (0-3); SPECIFIC GRAVITY URINE AUTO 1.008 (1.002-1.035); SQUAMOUS EPITHELIAL CELL UR AU 0 /HPF (0-6); UROBILINOGEN, URINE AUTO 0.2 mg/dL (0.0-2.0); WBC, URINE AUTO 1 /HPF (0-3)
[2020-02-20 16:46] LABS: CREATININE,RANDOM URINE 50.5 MG/DL; TOTAL PROTEIN,RANDOM URINE 55.9 MG/DL (0.0-12.0)
[2020-02-20 16:48] LABS: CALCIUM LEVEL 9.9 MG/DL (8.8-10.2); CREATININE FOR GFR 3.15 MG/DL (0.55-1.30); GLOMERULAR FILTRATION RATE 15.9 (>45); MAGNESIUM LEVEL 2.2 MG/DL (1.8-2.4); PHOSPHORUS LEVEL 3.9 MG/DL (2.5-4.9); POTASSIUM SERUM 5.3 MEQ/L (3.5-5.1)
== END ==
LOC: M LAB 15:05
PROVIDERS: ATTEND Nurse Practitioner
DX: N18.4 Chronic kidney disease, stage 4 (severe) (principal)

== ENCOUNTER → 2020-04-30 | Outpatient (CLI) | payer BC ==
[2020-04-30 14:09] LABS: AMORPHOUS SEDIMENT SMALL (NEGATIVE); APPEARANCE, URINE HAZY (CLEAR); BACTERIA, URINE AUTO 2+ (NEGATIVE); BILIRUBIN, URINE AUTO NEGATIVE (NEGATIVE); BLOOD, URINE BLOOD NEGATIVE (NEGATIVE); COLOR, URINE YELLOW (YELLOW); GLUCOSE, URINE (UA) AUTO 1+ mg/dL (NEGATIVE); KETONE, URINE AUTO NEGATIVE (NEGATIVE); LEUKOCYTE ESTERASE, URINE AUTO 1+ (NEGATIVE); NITRITE, URINE AUTO NEGATIVE (NEGATIVE); PROTEIN, URINE AUTO 2+ mg/dL (NEGATIVE); RBC, URINE AUTO 1 /HPF (0-3); SPECIFIC GRAVITY URINE AUTO 1.012 (1.002-1.035); SQUAMOUS EPITHELIAL CELL UR AU 3 /HPF (0-6); UROBILINOGEN, URINE AUTO 0.2 mg/dL (0.0-2.0); WBC, URINE AUTO 8 /HPF (0-3)
[2020-04-30 14:09] LABS: HEMATOCRIT 31.5 % (36.0-47.0); HEMOGLOBIN 10.3 g/dl (12.0-15.5); MEAN CORPUSCULAR HEMOGLOBIN 29.3 pg (27.0-33.0); MEAN CORPUSCULAR HGB CONC 32.7 g/dl (32.0-36.5); MEAN CORPUSCULAR VOLUME 89.7 fl (80.0-96.0); PLATELET COUNT, AUTOMATED 261 10^3/uL (150-450); RED BLOOD COUNT 3.51 10^6/uL (4.00-5.40); WHITE BLOOD COUNT 8.4 10^3/uL (4.0-10.0)
[2020-04-30 14:35] LABS: CREATININE,RANDOM URINE 84.1 MG/DL; TOTAL PROTEIN,RANDOM URINE 69.5 MG/DL (0.0-12.0)
[2020-04-30 14:39] LABS: CALCIUM LEVEL 9.4 MG/DL (8.8-10.2); CREATININE FOR GFR 2.85 MG/DL (0.55-1.30); GLOMERULAR FILTRATION RATE 17.8 (>45); PHOSPHORUS LEVEL 4.1 MG/DL (2.5-4.9); POTASSIUM SERUM 5.1 MEQ/L (3.5-5.1)
== END ==
LOC: M LAB 13:09
PROVIDERS: ATTEND Physician Assistant Medical
DX: N18.4 Chronic kidney disease, stage 4 (severe) (principal)

== ENCOUNTER → 2020-06-18 | Outpatient (CLI) | payer BC ==
[2020-06-18 14:31] LABS: HEMATOCRIT 32.6 % (36.0-47.0); HEMOGLOBIN 10.3 g/dl (12.0-15.5); MEAN CORPUSCULAR HEMOGLOBIN 28.2 pg (27.0-33.0); MEAN CORPUSCULAR HGB CONC 31.6 g/dl (32.0-36.5); MEAN CORPUSCULAR VOLUME 89.3 fl (80.0-96.0); PLATELET COUNT, AUTOMATED 274 10^3/uL (150-450); RED BLOOD COUNT 3.65 10^6/uL (4.00-5.40); WHITE BLOOD COUNT 9.3 10^3/uL (4.0-10.0)
[2020-06-18 14:32] LABS: APPEARANCE, URINE HAZY (CLEAR); BACTERIA, URINE AUTO NEGATIVE (NEGATIVE); BILIRUBIN, URINE AUTO NEGATIVE (NEGATIVE); BLOOD, URINE BLOOD NEGATIVE (NEGATIVE); COLOR, URINE YELLOW (YELLOW); GLUCOSE, URINE (UA) AUTO NEGATIVE (NEGATIVE); KETONE, URINE AUTO NEGATIVE (NEGATIVE); LEUKOCYTE ESTERASE, URINE AUTO 2+ (NEGATIVE); NITRITE, URINE AUTO NEGATIVE (NEGATIVE); PROTEIN, URINE AUTO 2+ mg/dL (NEGATIVE); RBC, URINE AUTO 2 /HPF (0-3); SPECIFIC GRAVITY URINE AUTO 1.011 (1.002-1.035); SQUAMOUS EPITHELIAL CELL UR AU 4 /HPF (0-6); UROBILINOGEN, URINE AUTO 0.2 mg/dL (0.0-2.0); WBC, URINE AUTO 9 /HPF (0-3)
[2020-06-18 15:05] LABS: TOTAL PROTEIN,RANDOM URINE 90.9 MG/DL (0.0-12.0)
[2020-06-18 15:06] LABS: ALBUMIN 3.8 GM/DL (3.2-5.2); CALCIUM LEVEL 9.8 MG/DL (8.8-10.2); CREATININE FOR GFR 2.92 MG/DL (0.55-1.30); GLOMERULAR FILTRATION RATE 17.3 (>45); PHOSPHORUS LEVEL 4.3 MG/DL (2.5-4.9); POTASSIUM SERUM 5.5 MEQ/L (3.5-5.1)
[2020-06-18 15:11] LABS: PTH INTACT 268.6 PG/ML (18.5-88.0)
== END ==
LOC: M PLALAB 10:20
PROVIDERS: ATTEND Physician Assistant Medical
DX: N18.4 Chronic kidney disease, stage 4 (severe) (principal)

== ENCOUNTER → 2020-09-28 | Outpatient (CLI) | payer BC ==
[~2020-09-28] MED LIST changes: -LISI-542 PO; +LISI-898 PO; +LISI10TA22 PO; -LISI10TA4 PO; +MONT10TA10 PO; -MONT10TA4 PO
[2020-09-28 11:20] LABS: HEMATOCRIT 34.1 % (36.0-47.0); HEMOGLOBIN 10.8 g/dl (12.0-15.5); MEAN CORPUSCULAR HEMOGLOBIN 27.7 pg (27.0-33.0); MEAN CORPUSCULAR HGB CONC 31.7 g/dl (32.0-36.5); MEAN CORPUSCULAR VOLUME 87.4 fl (80.0-96.0); PLATELET COUNT, AUTOMATED 250 10^3/uL (150-450); WHITE BLOOD COUNT 10.3 10^3/uL (4.0-10.0)
[2020-09-28 11:35] LABS: CALCIUM LEVEL 9.8 MG/DL (8.8-10.2); CREATININE FOR GFR 2.39 MG/DL (0.55-1.30); GLOMERULAR FILTRATION RATE 21.7 (>45); MAGNESIUM LEVEL 1.8 MG/DL (1.8-2.4); PERCENT SATURATION 22.8 % (13.2-45.0); URIC ACID 7.6 MG/DL (2.6-6.0)
[2020-09-28 12:59] LABS: HEMOGLOBIN A1c 7.3 %
== END ==
LOC: M PLALAB 08:02
PROVIDERS: ATTEND Internal Medicine
DX: N18.4 Chronic kidney disease, stage 4 (severe) (principal)

== ENCOUNTER → 2021-01-14 | Outpatient (CLI) | payer BC ==
[~2021-01-14] MED LIST changes: +D31000TA2 PO
[2021-01-14 17:29] LABS: BASO % 0.4 % (0.0-1.0); EOS # 0.2 10^3/uL (0.0-0.5); EOS % 2.5 % (0.0-3.0); HEMATOCRIT 30.7 % (36.0-47.0); LYMPH # 1.4 10^3/uL (1.5-5.0); LYMPH % 15.7 % (24.0-44.0); MEAN CORPUSCULAR HEMOGLOBIN 29.1 pg (27.0-33.0); MEAN CORPUSCULAR HGB CONC 32.6 g/dl (32.0-36.5); MEAN CORPUSCULAR VOLUME 89.2 fl (80.0-96.0); MONO # 0.6 10^3/uL (0.0-0.8); MONO % 6.7 % (2.0-8.0); NEUTROPHILS # 6.6 10^3/uL (1.5-8.5); PLATELET COUNT, AUTOMATED 223 10^3/uL (150-450); RED BLOOD COUNT 3.44 10^6/uL (4.00-5.40); WHITE BLOOD COUNT 8.9 10^3/uL (4.0-10.0)
[2021-01-14 17:40] LABS: APPEARANCE, URINE CLEAR (CLEAR); BACTERIA, URINE AUTO 1+ (NEGATIVE); BILIRUBIN, URINE AUTO NEGATIVE (NEGATIVE); BLOOD, URINE BLOOD NEGATIVE (NEGATIVE); COLOR, URINE STRAW (YELLOW); GLUCOSE, URINE (UA) AUTO 1+ mg/dL (NEGATIVE); KETONE, URINE AUTO NEGATIVE (NEGATIVE); LEUKOCYTE ESTERASE, URINE AUTO TRACE (NEGATIVE); NITRITE, URINE AUTO NEGATIVE (NEGATIVE); PROTEIN, URINE AUTO 2+ mg/dL (NEGATIVE); RBC, URINE AUTO 0 /HPF (0-3); SPECIFIC GRAVITY URINE AUTO 1.011 (1.002-1.035); SQUAMOUS EPITHELIAL CELL UR AU 1 /HPF (0-6); UROBILINOGEN, URINE AUTO 0.2 mg/dL (0.0-2.0); WBC, URINE AUTO 1 /HPF (0-3)
[2021-01-14 18:01] LABS: TOTAL PROTEIN,RANDOM URINE 62.4 MG/DL (0.0-12.0)
[2021-01-14 18:05] LABS: ALBUMIN 3.5 GM/DL (3.2-5.2); CALCIUM LEVEL 9.2 MG/DL (8.8-10.2); CREATININE FOR GFR 3.28 MG/DL (0.55-1.30); GLOMERULAR FILTRATION RATE 15.1 (>45); PHOSPHORUS LEVEL 3.8 MG/DL (2.5-4.9); POTASSIUM SERUM 5.7 MEQ/L (3.5-5.1); URIC ACID 7.7 MG/DL (2.6-6.0)
[2021-01-14 18:08] LABS: PTH INTACT 273.3 PG/ML (18.5-88.0)
== END ==
LOC: M PLALAB 14:54
PROVIDERS: ATTEND Physician Assistant Medical
DX: N18.4 Chronic kidney disease, stage 4 (severe) (principal)

== ENCOUNTER → 2021-01-27 | Outpatient (CLI) | payer BC ==
[~2021-01-27] MED LIST changes: +SERT50TA29 PO
--- NOTE | 2021-01-27 09:32 | REPMRS ---
Patient History The patient states she had a clinical breast exam in November 2020. Patient is postmenopausal, had previous chest radiation therapy at age 45, had previous chemotherapy at age 45, and has history of cancer in the left breast at age 44. Family history of breast cancer at age 35 in maternal cousin. Ultrasound-guided core biopsy, August 12, 2019. Malignant lumpectomy of the left breast, 1999. Radiation therapy of the left breast, 1999. Took tamoxifen for 5 years. Patient states no breast complaints today. Patient has signed MRS History Sheet. Digital Woman Screen Mammo: January 27, 2021 - Exam #: [id number] Bilateral CC and MLO view(s) were taken. Technologist: Mandie Oliver, Technologist Prior study comparison: July 22, 2019, bilateral digital mammo screening bilat, performed at [facility]. January 17, 2018, digital mammo diagnostic bilateral, performed at [facility]. August 25, 2016, digital woman screen mammo performed at [facility]. FINDINGS: There are scattered fibroglandular densities. The Volpara volumetric breast density category is:B. There is extensive subareolar fibrosis with dystrophic calcifications again noted in the left breast constituting stable post treatment changes in this patient with personal history of breast carcinoma. A needle biopsy clip is seen in the superomedial quadrant of the left breast from benign biopsy August 12, 2019. This areas unchanged. There has been no change in the appearance of the mammogram from the prior studies. There is a mild amount of scattered fibroglandular density which is fairly symmetric. There is no interval development of dominant mass, architectural distortion, or grouped microcalcification suggestive of malignancy. 3-D tomosynthesis shows no additional findings. Assessment: BI-RADS/ACR category 2 mammogram. Benign Findings. Recommendation Routine screening mammogram of both breasts in 1 year (for women over age 40). This mammogram was interpreted with the aid of an FDA-approved computer-aided dectection system. Electronically Signed By: Ryan Rojas MD 01/27/21 0931
== END ==
LOC: M WHC 08:07
PROVIDERS: ATTEND Internal Medicine Medical Oncology
DX: Z12.31 Encounter for screening mammogram for malignant neoplasm of breast (principal); Z85.3 Personal history of malignant neoplasm of breast

== ENCOUNTER → 2021-01-28 | Outpatient (REF) | payer BC ==
[2021-01-28 16:01] LABS: CALCIUM LEVEL 9.4 MG/DL (8.8-10.2); CREATININE FOR GFR 3.36 MG/DL (0.55-1.30); GLOMERULAR FILTRATION RATE 14.7 (>45); POTASSIUM SERUM 6.1 MEQ/L (3.5-5.1)
== END ==
LOC: M PLALAB 15:00
PROVIDERS: ATTEND Physician Assistant Medical
DX: N18.4 Chronic kidney disease, stage 4 (severe) (principal)

== ENCOUNTER → 2021-03-18 | Outpatient (CLI) | payer BC ==
[2021-03-18 10:35] LABS: CALCIUM LEVEL 9.4 MG/DL (8.8-10.2); CREATININE FOR GFR 3.02 MG/DL (0.55-1.30); GLOMERULAR FILTRATION RATE 16.6 (>45); POTASSIUM SERUM 5.1 MEQ/L (3.5-5.1)
== END ==
LOC: M PLALAB 09:12
PROVIDERS: ATTEND Internal Medicine
DX: N18.4 Chronic kidney disease, stage 4 (severe) (principal)

== ENCOUNTER 2021-03-23 21:53 | Emergency (ER) | payer BC ==
[~2021-03-23] VITALS: Ht 175.3 cm; Wt 107.4 kg
--- NOTE | 2021-03-23 23:00 | REPVR ---
PROCEDURE INFORMATION: Exam: XR Left Shoulder Exam date and time: 03/23/2021 10:28 PM Age: 65 years old Clinical indication: Injury or trauma; Fall; Swelling (edema); Shoulder; Left; Additional info: Fall injury TECHNIQUE: Imaging protocol: XR Left shoulder. Views: 2 or more views. COMPARISON: CR Humerus 07/18/2016 1:14 PM FINDINGS: Glenohumeral alignment is maintained. Mild glenohumeral osteoarthritic changes are noted. No evidence of a Hill-Sachs defect is seen. Enthesopathic changes are noted at the greater tuberosity. There are some calcific densities above the humeral head which may represent calcific tendinitis or intra-articular ossific bodies. Acromioclavicular alignment is preserved. Acromioclavicular degenerative changes are noted. There is subacromial spurring and lateral downsloping of the distal acromion which could be correlated for signs of impingement. Surgical clips are seen in the left axillary/chest wall region. IMPRESSION: No evidence of an acute osseous injury or articular malalignment. Other findings discussed above. Electronically signed by: David Patino On 03/23/2021 23:00:38 PM
--- NOTE | 2021-03-24 02:33 | REPVR ---
PROCEDURE INFORMATION: Exam: XR Left Humerus Exam date and time: 03/24/2021 2:11 AM Age: 65 years old Clinical indication: Other: Fall; Additional info: Fall, mid shaft pain TECHNIQUE: Imaging protocol: XR Left humerus. Views: 2 or more views. COMPARISON: CR Humerus 07/18/2016 1:14 PM FINDINGS: No acute fracture or malalignment of the left humerus is seen. Osteoarthritic changes at the left shoulder are noted. There are some calcific densities between the humeral head and acromial process which may represent intra-articular loose bodies or calcific tendinitis. There is prominent appearing subacromial spurring. Enthesopathic changes noted at the greater tuberosity. There are some degenerative changes at the visualized elbow. If there are symptoms related to the elbow, consider dedicated joint views. Surgical clips are seen in the region of the left axilla. IMPRESSION: No acute osseous injury is seen. Other findings discussed above. Electronically signed by: David Patino On 03/24/2021 02:32:14 AM
[2021-03-24] MEDS ORDERED: traMADol 50 MG TAB PO ONE (03:15)
[2021-03-24] MEDS ORDERED: TRAM50TA2 PO (03:26)
[2021-03-24 03:34] VITALS: BP 145/65
== END 2021-03-24 03:36 | disposition home or self-care (01) ==
LOC: M ED 21:53
DX: M25.512 Pain in left shoulder (principal); W01.0XXA Fall on same level from slipping, tripping and stumbling without subsequent striking against object, initial encounter; K21.9 Gastro-esophageal reflux disease without esophagitis; F41.1 Generalized anxiety disorder; F32.9 Major depressive disorder, single episode, unspecified; E11.9 Type 2 diabetes mellitus without complications; N18.9 Chronic kidney disease, unspecified; Z88.8 Allergy status to other drugs, medicaments and biological substances; Y92.091 Bathroom in other non-institutional residence as the place of occurrence of the external cause; Y93.9 Activity, unspecified; Y99.9 Unspecified external cause status

== ENCOUNTER → 2021-04-13 | Outpatient (CLI) | payer BC ==
[~2021-04-13] MED LIST changes: +TRAM50TA2 PO
== END ==
LOC: M PLALAB 12:37
PROVIDERS: ATTEND Internal Medicine
DX: Z53.9 Procedure and treatment not carried out, unspecified reason (principal); N18.4 Chronic kidney disease, stage 4 (severe)

== ENCOUNTER → 2021-04-15 | Outpatient (CLI) | payer BC ==
[2021-04-15 09:52] LABS: CREATININE FOR GFR 3.01 MG/DL (0.55-1.30); GLOMERULAR FILTRATION RATE 16.7 (>45); POTASSIUM SERUM 5.6 MEQ/L (3.5-5.1)
== END ==
LOC: M LAB 08:47
PROVIDERS: ATTEND Internal Medicine
DX: N18.4 Chronic kidney disease, stage 4 (severe) (principal)

== ENCOUNTER → 2021-05-05 | Outpatient (RCR) | payer BC | LOC: M PT 04-14 14:27 | PROVIDERS: ATTEND Physician Assistant Surgical | DX: M19.012 Primary osteoarthritis, left shoulder (principal); M75.32 Calcific tendinitis of left shoulder ==

== ENCOUNTER → 2021-05-26 | Outpatient (CLI) | payer BC ==
[~2021-05-26] MED LIST changes: -FENO48TA7 PO; +FENO48TA8 PO
[2021-05-26 12:51] LABS: CALCIUM LEVEL 9.6 MG/DL (8.8-10.2); CREATININE FOR GFR 2.98 MG/DL (0.55-1.30); GLOMERULAR FILTRATION RATE 16.9 (>45)
== END ==
LOC: M LAB 11:25
PROVIDERS: ATTEND Internal Medicine
DX: N18.4 Chronic kidney disease, stage 4 (severe) (principal)

== ENCOUNTER 2021-06-03 14:45 | Outpatient (RCR) | payer BC | END 2021-06-05 | LOC: M PT 14:45 | PROVIDERS: ATTEND Physician Assistant Surgical | DX: M19.012 Primary osteoarthritis, left shoulder (principal); M75.32 Calcific tendinitis of left shoulder ==

== ENCOUNTER → 2021-07-05 | Outpatient (CLI) | payer BC ==
[2021-07-05 12:11] LABS: HEMATOCRIT 32.9 % (36.0-47.0); HEMOGLOBIN 10.5 g/dl (12.0-15.5); MEAN CORPUSCULAR HEMOGLOBIN 27.9 pg (27.0-33.0); MEAN CORPUSCULAR HGB CONC 31.9 g/dl (32.0-36.5); MEAN CORPUSCULAR VOLUME 87.3 fl (80.0-96.0); PLATELET COUNT, AUTOMATED 245 10^3/uL (150-450); RED BLOOD COUNT 3.77 10^6/uL (4.00-5.40); WHITE BLOOD COUNT 9.1 10^3/uL (4.0-10.0)
[2021-07-05 12:38] LABS: ALBUMIN 3.5 GM/DL (3.2-5.2); BILIRUBIN,TOTAL 0.4 MG/DL (0.2-1.0); CALCIUM LEVEL 10.2 MG/DL (8.8-10.2); CHOLESTEROL RISK RATIO 2.888 (<5); CREATININE FOR GFR 2.96 MG/DL (0.55-1.30); GLOMERULAR FILTRATION RATE 16.9 (>45); POTASSIUM SERUM 4.7 MEQ/L (3.5-5.1); TOTAL PROTEIN 7.1 GM/DL (6.4-8.2)
== END ==
LOC: M LAB 10:49
PROVIDERS: ATTEND Family Medicine
DX: E11.9 Type 2 diabetes mellitus without complications (principal)

== ENCOUNTER 2021-11-21 14:04 | Emergency (ER) | payer BC, MEDICARE ==
[~2021-11-21] VITALS: Ht 177.8 cm; Wt 110.3 kg
[~2021-11-21 14:04] MED LIST changes: -D31000TA2 PO; -LISI-898 PO; +LISI5TAB11 PO; -MONT10TA10 PO; +MONT10TA97 PO; +VITA100093 PO
[2021-11-21 18:53] VITALS: BP 154/78
== END 2021-11-21 19:01 | disposition home or self-care (01) ==
LOC: M ED 14:04
DX: M25.572 Pain in left ankle and joints of left foot (principal); I10 Essential (primary) hypertension; G47.33 Obstructive sleep apnea (adult) (pediatric); Z88.8 Allergy status to other drugs, medicaments and biological substances; Z79.811 Long term (current) use of aromatase inhibitors; Z79.899 Other long term (current) drug therapy

== ENCOUNTER → 2021-11-28 | Outpatient (CLI) | payer BC, MEDICARE ==
[2021-11-28 13:29] LABS: HEMOGLOBIN 10.1 g/dl (12.0-15.5); MEAN CORPUSCULAR HEMOGLOBIN 28.1 pg (27.0-33.0); MEAN CORPUSCULAR HGB CONC 32.6 g/dl (32.0-36.5); MEAN CORPUSCULAR VOLUME 86.1 fl (80.0-96.0); PLATELET COUNT, AUTOMATED 283 10^3/uL (150-450); WHITE BLOOD COUNT 10.5 10^3/uL (4.0-10.0)
[2021-11-28 13:54] LABS: CALCIUM LEVEL 10.9 MG/DL (8.8-10.2); CREATININE FOR GFR 3.13 MG/DL (0.55-1.30); GLOMERULAR FILTRATION RATE 15.9 (>45); POTASSIUM SERUM 4.7 MEQ/L (3.5-5.1)
== END ==
LOC: M LAB 12:02
PROVIDERS: ATTEND Internal Medicine
DX: N18.4 Chronic kidney disease, stage 4 (severe) (principal)

== ENCOUNTER → 2022-03-31 | Outpatient (CLI) | payer BC, MEDICARE ==
[~2022-03-31] MED LIST changes: -CLAR5TAB PO; +DESL5TAB28 PO; +ISOVUE-300 61% 5ML SYRINGE As Ordered ONE; +LIDOCAINE 1% MDV 20ML VIAL As Ordered ONE; +TRIAMCINOLONE ACETONIDE SUSP 40 MG/ML VIAL (J3301) As Ordered ONE
== END ==
LOC: M RADPRO 14:02
PROVIDERS: ATTEND Physician Assistant
DX: M76.822 Posterior tibial tendinitis, left leg (principal)
CPT/HCPCS: 20600; 76000; J3301; Q9967

== ENCOUNTER → 2022-06-01 | Outpatient (CLI) | payer BC, MEDICARE ==
[~2022-06-01] MED LIST changes: -ISOVUE-300 61% 5ML SYRINGE As Ordered ONE; -LIDOCAINE 1% MDV 20ML VIAL As Ordered ONE; -TRIAMCINOLONE ACETONIDE SUSP 40 MG/ML VIAL (J3301) As Ordered ONE
[2022-06-01 17:01] LABS: MEAN CORPUSCULAR HEMOGLOBIN 27.7 pg (27.0-33.0); MEAN CORPUSCULAR HGB CONC 32.1 g/dl (32.0-36.5); MEAN CORPUSCULAR VOLUME 86.2 fl (80.0-96.0); PLATELET COUNT, AUTOMATED 256 10^3/uL (150-450); RED BLOOD COUNT 3.25 10^6/uL (4.00-5.40); WHITE BLOOD COUNT 11.1 10^3/uL (4.0-10.0)
[2022-06-01 17:21] LABS: CALCIUM LEVEL 9.7 MG/DL (8.8-10.2); CREATININE FOR GFR 3.71 MG/DL (0.55-1.30); MAGNESIUM LEVEL 1.7 MG/DL (1.8-2.4); POTASSIUM SERUM 4.5 MEQ/L (3.5-5.1)
== END ==
LOC: M LAB 15:35
PROVIDERS: ATTEND Internal Medicine
DX: N18.4 Chronic kidney disease, stage 4 (severe) (principal)

== ENCOUNTER → 2022-07-07 | Outpatient (CLI) | payer BC, MEDICARE ==
[2022-07-07 15:02] LABS: HEMOGLOBIN 8.8 g/dl (12.0-15.5); MEAN CORPUSCULAR HEMOGLOBIN 27.8 pg (27.0-33.0); MEAN CORPUSCULAR HGB CONC 31.4 g/dl (32.0-36.5); MEAN CORPUSCULAR VOLUME 88.3 fl (80.0-96.0); PLATELET COUNT, AUTOMATED 286 10^3/uL (150-450); RED BLOOD COUNT 3.17 10^6/uL (4.00-5.40); WHITE BLOOD COUNT 12.9 10^3/uL (4.0-10.0)
[2022-07-07 15:28] LABS: MAGNESIUM LEVEL 1.9 MG/DL (1.8-2.4)
[2022-07-07 15:29] LABS: CALCIUM LEVEL 9.8 MG/DL (8.3-10.6); CREATININE FOR GFR 4.24 MG/DL (0.55-1.30); GLOMERULAR FILTRATION RATE 11.1 (>45); POTASSIUM SERUM 4.4 MMOL/L (3.5-5.1)
== END ==
LOC: M LAB 14:03
PROVIDERS: ATTEND Internal Medicine
DX: N18.4 Chronic kidney disease, stage 4 (severe) (principal)

== ENCOUNTER → 2022-07-24 | Outpatient (CLI) | payer MEDICARE, BC ==
[2022-07-24 13:42] LABS: CHOLESTEROL RISK RATIO 3.63 (<5); HDL CHOLESTEROL 35.8 MG/DL (>40); LDL CHOLESTEROL 68.4 MG/DL (<100)
== END ==
LOC: M LAB 12:51
PROVIDERS: ATTEND Family Medicine
DX: E11.8 Type 2 diabetes mellitus with unspecified complications (principal)

== ENCOUNTER → 2022-08-08 | Outpatient (CLI) | payer BC, MEDICARE ==
[2022-08-08 13:20] LABS: HEMATOCRIT 27.3 % (36.0-47.0); HEMOGLOBIN 8.5 g/dl (12.0-15.5); MEAN CORPUSCULAR HEMOGLOBIN 27.4 pg (27.0-33.0); MEAN CORPUSCULAR HGB CONC 31.1 g/dl (32.0-36.5); MEAN CORPUSCULAR VOLUME 88.1 fl (80.0-96.0); PLATELET COUNT, AUTOMATED 275 10^3/uL (150-450); WHITE BLOOD COUNT 11.6 10^3/uL (4.0-10.0)
[2022-08-08 13:53] LABS: MAGNESIUM LEVEL 1.8 MG/DL (1.8-2.4)
[2022-08-08 13:55] LABS: CALCIUM LEVEL 9.7 MG/DL (8.3-10.6); CREATININE FOR GFR 4.12 MG/DL (0.55-1.30); GLOMERULAR FILTRATION RATE 11.5 (>45); POTASSIUM SERUM 4.6 MMOL/L (3.5-5.1)
== END ==
LOC: M LAB 11:51
PROVIDERS: ATTEND Internal Medicine
DX: N18.4 Chronic kidney disease, stage 4 (severe) (principal)

== ENCOUNTER → 2022-08-21 | Outpatient (CLI) | payer BC, MEDICARE | LOC: M WHC 13:52 | PROVIDERS: ATTEND Internal Medicine | DX: Z12.31 Encounter for screening mammogram for malignant neoplasm of breast (principal); Z85.3 Personal history of malignant neoplasm of breast ==

== ENCOUNTER → 2022-09-05 | Outpatient (CLI) | payer BC, MEDICARE ==
[2022-09-05 16:00] LABS: HEMATOCRIT 29.1 % (36.0-47.0); HEMOGLOBIN 9.2 g/dl (12.0-15.5); MEAN CORPUSCULAR HEMOGLOBIN 27.3 pg (27.0-33.0); MEAN CORPUSCULAR HGB CONC 31.6 g/dl (32.0-36.5); MEAN CORPUSCULAR VOLUME 86.4 fl (80.0-96.0); PLATELET COUNT, AUTOMATED 253 10^3/uL (150-450); RED BLOOD COUNT 3.37 10^6/uL (4.00-5.40)
[2022-09-05 16:18] LABS: ALBUMIN 3.5 G/DL (3.2-5.2); BILIRUBIN,TOTAL 0.3 MG/DL (0.3-1.2); CALCIUM LEVEL 9.5 MG/DL (8.3-10.6); CREATININE FOR GFR 4.27 MG/DL (0.55-1.30); GLOMERULAR FILTRATION RATE 11.1 (>45); MAGNESIUM LEVEL 1.7 MG/DL (1.8-2.4); POTASSIUM SERUM 4.4 MMOL/L (3.5-5.1); TOTAL PROTEIN 6.6 G/DL (5.7-8.2)
== END ==
LOC: M LAB 15:28
PROVIDERS: ATTEND Internal Medicine
DX: N18.4 Chronic kidney disease, stage 4 (severe) (principal)

== ENCOUNTER → 2022-09-29 | Outpatient (CLI) | payer BC, MEDICARE | LOC: M LAB 11:59 | PROVIDERS: ATTEND Internal Medicine | DX: Z01.818 Encounter for other preprocedural examination (principal) ==

== ENCOUNTER → 2022-10-05 | Outpatient (REF) | payer BC, MEDICARE, OTHER ==
[~2022-10-05] MED LIST changes: +GASTROGRAFIN SOLUTION 30ML ONE
== END ==
LOC: M PLAIMG 11:45 → EDSTATUS 13:45
PROVIDERS: ATTEND Physician Assistant
DX: Z01.818 Encounter for other preprocedural examination (principal); N18.6 End stage renal disease

== ENCOUNTER → 2022-10-09 | Outpatient (CLI) | payer BC, MEDICARE ==
[~2022-10-09] MED LIST changes: -GASTROGRAFIN SOLUTION 30ML ONE
[2022-10-09 16:05] LABS: HEMATOCRIT 30.4 % (36.0-47.0); HEMOGLOBIN 9.7 g/dl (12.0-15.5); MEAN CORPUSCULAR HEMOGLOBIN 27.6 pg (27.0-33.0); MEAN CORPUSCULAR HGB CONC 31.9 g/dl (32.0-36.5); MEAN CORPUSCULAR VOLUME 86.4 fl (80.0-96.0); PLATELET COUNT, AUTOMATED 306 10^3/uL (150-450); RED BLOOD COUNT 3.52 10^6/uL (4.00-5.40)
[2022-10-09 16:25] LABS: CALCIUM LEVEL 9.5 MG/DL (8.3-10.6); CREATININE FOR GFR 4.29 MG/DL (0.55-1.30); MAGNESIUM LEVEL 1.6 MG/DL (1.8-2.4); POTASSIUM SERUM 4.9 MMOL/L (3.5-5.1)
== END ==
LOC: M LAB 14:51
PROVIDERS: ATTEND Internal Medicine
DX: N18.4 Chronic kidney disease, stage 4 (severe) (principal)

== ENCOUNTER → 2022-11-07 | Outpatient (REF) | payer BC | LOC: M PLALAB 17:02 | PROVIDERS: ATTEND Nurse Practitioner Family | DX: Z12.4 Encounter for screening for malignant neoplasm of cervix (principal) | CPT/HCPCS: 87624; G0123 ==

== ENCOUNTER → 2022-11-13 | Outpatient (CLI) | payer BC, MEDICARE ==
[2022-11-13 14:42] LABS: HEMATOCRIT 30.3 % (36.0-47.0); HEMOGLOBIN 9.6 g/dl (12.0-15.5); MEAN CORPUSCULAR HEMOGLOBIN 27.6 pg (27.0-33.0); MEAN CORPUSCULAR HGB CONC 31.7 g/dl (32.0-36.5); MEAN CORPUSCULAR VOLUME 87.1 fl (80.0-96.0); PLATELET COUNT, AUTOMATED 276 10^3/uL (150-450); RED BLOOD COUNT 3.48 10^6/uL (4.00-5.40); WHITE BLOOD COUNT 13.8 10^3/uL (4.0-10.0)
[2022-11-13 15:05] LABS: CALCIUM LEVEL 9.4 MG/DL (8.3-10.6); CREATININE FOR GFR 4.21 MG/DL (0.55-1.30); GLOMERULAR FILTRATION RATE 11.2 (>45); MAGNESIUM LEVEL 1.8 MG/DL (1.8-2.4); POTASSIUM SERUM 4.8 MMOL/L (3.5-5.1)
== END ==
LOC: M LAB 14:17
PROVIDERS: ATTEND Internal Medicine
DX: N18.4 Chronic kidney disease, stage 4 (severe) (principal)

== ENCOUNTER 2022-12-15 07:55 | Outpatient (CLI) | payer BC, MEDICARE ==
[~2022-12-15] VITALS: Ht 177.8 cm; Wt 106.4 kg
[2022-12-15 08:10] VITALS: BP 159/73
[2022-12-15] MEDS ORDERED: IRON SUCROSE 300 MG in NS 250 ML OVER 90 MIN. IV ONE (08:30)
[2022-12-15 10:00] VITALS: BP 147/77
[2022-12-15 11:00] VITALS: BP 140/70
== END 2022-12-15 11:00 | disposition home or self-care (01) ==
LOC: M INFU 07:55
PROVIDERS: ATTEND Internal Medicine
DX: D50.9 Iron deficiency anemia, unspecified (principal); Z88.8 Allergy status to other drugs, medicaments and biological substances
CPT/HCPCS: 96365; 96366; J1756

== ENCOUNTER 2022-12-22 08:10 | Outpatient (CLI) | payer BC, MEDICARE ==
[~2022-12-22] VITALS: Ht 177.8 cm; Wt 106.4 kg
[2022-12-22 08:10] VITALS: BP 165/79
[2022-12-22] MEDS ORDERED: IRON SUCROSE 300 MG in NS 250 ML OVER 90 MIN. IV ONE (08:30)
[2022-12-22 09:30] VITALS: BP 152/73
[2022-12-22 10:30] VITALS: BP 163/84
[2022-12-22 10:50] VITALS: BP 143/79
== END 2022-12-22 11:05 | disposition home or self-care (01) ==
LOC: M INFU 08:10
PROVIDERS: ATTEND Internal Medicine
DX: D50.9 Iron deficiency anemia, unspecified (principal); Z88.8 Allergy status to other drugs, medicaments and biological substances
CPT/HCPCS: 96365; 96366; J1756

== ENCOUNTER 2022-12-29 08:30 | Outpatient (CLI) | payer BC, MEDICARE ==
[~2022-12-29] VITALS: Ht 177.8 cm; Wt 106.4 kg
[2022-12-29 08:30] VITALS: BP 132/59
[~2022-12-29 08:30] MED LIST changes: +IRON SUCROSE 300 MG in NS 250 ML OVER 90 MIN. IV ONE
[2022-12-29 10:30] VITALS: BP 133/66
[2022-12-29 11:45] VITALS: BP 168/82
== END 2022-12-29 11:55 | disposition home or self-care (01) ==
LOC: M INFU 08:30
PROVIDERS: ATTEND Internal Medicine
DX: D50.9 Iron deficiency anemia, unspecified (principal); Z88.8 Allergy status to other drugs, medicaments and biological substances
CPT/HCPCS: 96365; 96366; J1756

== ENCOUNTER 2023-01-02 15:01 | Emergency (ER) | payer BC, MEDICARE ==
[~2023-01-02] VITALS: Ht 177.8 cm; Wt 106.7 kg
[~2023-01-02 15:01] MED LIST changes: -IRON SUCROSE 300 MG in NS 250 ML OVER 90 MIN. IV ONE
[2023-01-02] MEDS ORDERED: MORPHINE 2 MG/ML 1ML VIAL IV ONE (17:25)
[2023-01-02] MEDS ORDERED: ONDANSETRON 4MG 2ML VIAL IV ONE (17:25)
[2023-01-02 17:49] LABS: BASO # 0.1 10^3/uL (0.0-0.2); BASO % 0.5 % (0.0-1.0); EOS # 0.2 10^3/uL (0.0-0.5); EOS % 1.6 % (0.0-3.0); HEMATOCRIT 29.3 % (36.0-47.0); HEMOGLOBIN 9.1 g/dl (12.0-15.5); LYMPH # 1.5 10^3/uL (1.5-5.0); LYMPH % 13.2 % (24.0-44.0); MEAN CORPUSCULAR HEMOGLOBIN 28.5 pg (27.0-33.0); MEAN CORPUSCULAR HGB CONC 31.1 g/dl (32.0-36.5); MEAN CORPUSCULAR VOLUME 91.8 fl (80.0-96.0); MONO # 0.9 10^3/uL (0.0-0.8); NEUTROPHILS # 8.5 10^3/uL (1.5-8.5); NEUTROPHILS % 75.7 % (36.0-66.0); PLATELET COUNT, AUTOMATED 232 10^3/uL (150-450); RED BLOOD COUNT 3.19 10^6/uL (4.00-5.40); WHITE BLOOD COUNT 11.2 10^3/uL (4.0-10.0)
[2023-01-02] MEDS ORDERED: BOOSTRIX VACCINE (TETANUS/DIPHTH/ACEL. PERTUSSIS) 0.5ML SYR IM.IMMUN ONE (18:15)
[2023-01-02 18:21] LABS: ALBUMIN 3.5 G/DL (3.2-5.2); ALKALINE PHOSPHATASE 72 U/L (46-116); ALT/SGPT 14 U/L (7.0-40); AST/SGOT < 8 U/L (<34); BILIRUBIN,TOTAL 0.2 MG/DL (0.3-1.2); BLOOD UREA NITROGEN 73 MG/DL (9-23); CALCIUM LEVEL 9.6 MG/DL (8.3-10.6); CARBON DIOXIDE LEVEL 17 MMOL/L (20-31); CHLORIDE LEVEL 107 MMOL/L (98-107); CREATININE FOR GFR 4.47 MG/DL (0.55-1.30); GLOMERULAR FILTRATION RATE 10.5 (>45); GLUCOSE, FASTING 216 MG/DL (74-106); POTASSIUM SERUM 4.8 MMOL/L (3.5-5.1); SODIUM LEVEL 137 MMOL/L (136-145); TOTAL PROTEIN 6.6 G/DL (5.7-8.2)
[2023-01-02] MEDS: MORPHINE 2 MG/ML 1ML VIAL IV PRN ×2 (20:12→23:26)
[2023-01-02 20:46] VITALS: BP 145/78
[2023-01-02] MEDS ORDERED: traMADol 50 MG TAB (HOME DOSE PACK) PO ONE (23:00)
== END 2023-01-02 23:37 | disposition home or self-care (01) ==
LOC: M ED 15:01
DX: M62.838 Other muscle spasm (principal); M54.2 Cervicalgia; M25.511 Pain in right shoulder; M25.462 Effusion, left knee; W01.0XXA Fall on same level from slipping, tripping and stumbling without subsequent striking against object, initial encounter; I44.0 Atrioventricular block, first degree; I44.4 Left anterior fascicular block; I25.2 Old myocardial infarction; E11.9 Type 2 diabetes mellitus without complications; G47.33 Obstructive sleep apnea (adult) (pediatric); F32.A Depression, unspecified; I10 Essential (primary) hypertension; Z79.4 Long term (current) use of insulin; Z88.8 Allergy status to other drugs, medicaments and biological substances; Z79.811 Long term (current) use of aromatase inhibitors; Z79.899 Other long term (current) drug therapy; Z23 Encounter for immunization
CPT/HCPCS: 70450; 71045; 72125; 72141; 72190; 73060; 73080; 73564; 80053; 85025; 90471; 90715; 93005; 93041; 96374; 96375; 96376; 99284; J2405

== ENCOUNTER → 2023-02-20 | Outpatient (CLI) | payer BC, MEDICARE ==
[~2023-02-20] MED LIST changes: -DOXA2TAB3 PO; +DOXA2TAB61 PO
== END ==
LOC: M CARPUL 14:36
PROVIDERS: ATTEND Physician Assistant
DX: Z01.818 Encounter for other preprocedural examination (principal); R93.1 Abnormal findings on diagnostic imaging of heart and coronary circulation; I35.0 Nonrheumatic aortic (valve) stenosis

== ENCOUNTER → 2023-03-15 | Outpatient (CLI) | payer BC, MEDICARE | LOC: M RAD 07:47 | PROVIDERS: ATTEND Orthopaedic Surgery | DX: M50.30 Other cervical disc degeneration, unspecified cervical region (principal) | CPT/HCPCS: 78315; A9503 ==

== ENCOUNTER 2023-08-14 13:19 | Outpatient (CLI) | payer BC, MEDICARE ==
[~2023-08-14] VITALS: Ht 177.8 cm; Wt 102.7 kg
[~2023-08-14 13:19] MED LIST changes: +GLIP5TAB17 PO; -GLIP5TAB8 PO; +IRON SUCROSE 300 MG in NS 250 ML OVER 90 MIN. IV ONE
[2023-08-14 13:55] VITALS: BP 144/70; O2SAT 100
[2023-08-14 15:45] VITALS: BP 168/77; O2SAT 100
== END 2023-08-14 15:45 | disposition home or self-care (01) ==
LOC: M INFU 13:19
PROVIDERS: ATTEND Physician Assistant Medical
DX: D50.9 Iron deficiency anemia, unspecified (principal); Z88.8 Allergy status to other drugs, medicaments and biological substances
CPT/HCPCS: 96365; 96366; J1756

== ENCOUNTER 2023-08-28 15:21 | Outpatient (CLI) | payer BC, MEDICARE ==
[2023-08-28 14:45] VITALS: BP 176/88; O2SAT 99
[~2023-08-28 15:21] MED LIST changes: -IRON SUCROSE 300 MG in NS 250 ML OVER 90 MIN. IV ONE
[2023-08-28] MEDS ORDERED: IRON SUCROSE 300 MG in NS 250 ML OVER 90 MIN. IV ONE (15:50)
[2023-08-28 17:50] VITALS: BP 173/80; O2SAT 99
== END 2023-08-28 17:50 | disposition home or self-care (01) ==
LOC: M INFU 15:21
PROVIDERS: ATTEND Physician Assistant Medical
DX: D50.9 Iron deficiency anemia, unspecified (principal); Z88.8 Allergy status to other drugs, medicaments and biological substances
CPT/HCPCS: 96365; 96366; J1756

== ENCOUNTER 2023-09-04 12:55 | Outpatient (CLI) | payer BC, MEDICARE ==
[~2023-09-04] VITALS: Ht 172.7 cm; Wt 100.1 kg
[2023-09-04 13:00] VITALS: BP 125/60; O2SAT 98
[2023-09-04] MEDS ORDERED: IRON SUCROSE 300 MG in NS 250 ML OVER 90 MIN. IV ONE (13:00)
[2023-09-04 15:21] VITALS: BP 157/71; O2SAT 100
== END 2023-09-04 15:30 ==
LOC: M INFU 12:55
PROVIDERS: ATTEND Physician Assistant Medical
DX: D50.9 Iron deficiency anemia, unspecified (principal); Z88.8 Allergy status to other drugs, medicaments and biological substances
CPT/HCPCS: 96365; J1756

== ENCOUNTER 2023-09-12 07:27 | Day surgery (SDC) | payer BC, MEDICARE ==
[~2023-09-12] VITALS: Ht 177.8 cm; Wt 102.0 kg
[~2023-09-12 07:27] MED LIST changes: +MIDAZOLAM INJ 2MG/2ML VIAL As Ordered ONE; +fentaNYL 100 MCG/2 ML INJECTION As Ordered ONE
[2023-09-12] MEDS: LIDOCAINE 3.5 % 1ML OPHTH TOPICAL GEL OU ONE (08:00)
[2023-09-12] MEDS: OFLOXACIN 0.3 % (OCUFLOX) OPTH SOL 5ML OS ONE (08:00)
[2023-09-12] MEDS ORDERED: TRUL0.5I SQ (08:14)
[2023-09-12] MEDS: LIDOCAINE 1% SDV 5ML VIAL As Ordered ONE (09:14)
[2023-09-12] MEDS: BSS IRRIG/VANCO(10MG)/TOBRA(5MG)/EPINEPH(1:1000-0.5CC)500ML BAG-ORONLY As Ordered ONE (09:14)
[2023-09-12] MEDS: CEFUROXIME 1MG/0.1ML INTRACAMERAL INJ As Ordered ONE (09:15)
[2023-09-12] MEDS: DUOVISC (0.50ML VISCOAT/0.85ML PROVISC) OPHTH KIT As Ordered ONE (09:20)
[2023-09-12 09:28] VITALS: BP 163/79; TEMP 98.8; O2SAT 98
[2023-09-12] MEDS: CYCLOPENTOLATE 1% OPHTH SOLN 2ML BTL OS SCH (10:06)
[2023-09-12] MEDS: TROPICAMIDE 1% OPHTH SOLN 15ML OS SCH (10:07)
[2023-09-12] MEDS: PHENYLEPHRINE 2.5% OPHTH SOL 2ML OS SCH (10:07)
[2023-09-12] MEDS: PHENYLEPHRINE 10% OPHTH SOL 5ML OS PRN (10:07)
== END 2023-09-12 09:48 | disposition home or self-care (01) ==
LOC: M SDC 07:27
PROVIDERS: ATTEND Ophthalmology
DX: H25.12 Age-related nuclear cataract, left eye (principal); I10 Essential (primary) hypertension; E78.5 Hyperlipidemia, unspecified; E11.40 Type 2 diabetes mellitus with diabetic neuropathy, unspecified; G47.33 Obstructive sleep apnea (adult) (pediatric); K21.9 Gastro-esophageal reflux disease without esophagitis; F41.9 Anxiety disorder, unspecified; F32.A Depression, unspecified; D64.9 Anemia, unspecified; Z79.84 Long term (current) use of oral hypoglycemic drugs; Z79.899 Other long term (current) drug therapy; Z92.21 Personal history of antineoplastic chemotherapy; Z85.3 Personal history of malignant neoplasm of breast; Z79.4 Long term (current) use of insulin
CPT/HCPCS: 66984; 92015; J0697; J2250; J3010; V2788

== ENCOUNTER 2023-10-10 08:16 | Day surgery (SDC) | payer BC, MEDICARE ==
[~2023-10-10] VITALS: Ht 175.3 cm; Wt 102.1 kg
[~2023-10-10 08:16] MED LIST changes: +CINA30TA4 PO; +IRON65TA2 PO; +MAGN400C PO; -MIDAZOLAM INJ 2MG/2ML VIAL As Ordered ONE; +PAME10CA PO; +PHENYLEPHRINE 10% OPHTH SOL 5ML OD PRN; +ROCA0.25 PO; +TRUL0.5I SQ; +VITA500C24 PO; +[UNRECOGNIZED DRUG - CODE]; -fentaNYL 100 MCG/2 ML INJECTION As Ordered ONE
[2023-10-10] MEDS: LIDOCAINE 3.5 % 1ML OPHTH TOPICAL GEL OU ONE (09:31)
[2023-10-10] MEDS: OFLOXACIN 0.3 % (OCUFLOX) OPTH SOL 5ML OD ONE (09:31)
[2023-10-10] MEDS: TROPICAMIDE 1% OPHTH SOLN 15ML OD SCH (09:31)
[2023-10-10] MEDS: ATROPINE SULFATE 1% OPHTH SOLN 2ML BTL OD SCH (09:31)
[2023-10-10] MEDS: PHENYLEPHRINE 2.5% OPHTH SOL 2ML OD SCH (09:31)
[2023-10-10] MEDS: BSS IRRIG/VANCO(10MG)/TOBRA(5MG)/EPINEPH(1:1000-0.5CC)500ML BAG-ORONLY As Ordered ONE (10:36)
[2023-10-10] MEDS: LIDOCAINE 1% SDV 5ML VIAL As Ordered ONE (10:37)
[2023-10-10] MEDS: CEFUROXIME 1MG/0.1ML INTRACAMERAL INJ As Ordered ONE (10:37)
[2023-10-10] MEDS ORDERED: fentaNYL 100 MCG/2 ML INJECTION As Ordered ONE (10:39)
[2023-10-10 10:50] VITALS: BP 169/82; TEMP 97.8; O2SAT 98
== END 2023-10-10 11:57 | disposition home or self-care (01) ==
LOC: M SDC 08:16
PROVIDERS: ATTEND Ophthalmology
DX: H25.11 Age-related nuclear cataract, right eye (principal); I10 Essential (primary) hypertension; E78.5 Hyperlipidemia, unspecified; E11.9 Type 2 diabetes mellitus without complications; Z79.4 Long term (current) use of insulin; Z85.3 Personal history of malignant neoplasm of breast; Z92.21 Personal history of antineoplastic chemotherapy; G47.33 Obstructive sleep apnea (adult) (pediatric); F41.9 Anxiety disorder, unspecified; F32.A Depression, unspecified; K21.9 Gastro-esophageal reflux disease without esophagitis; D64.9 Anemia, unspecified; Z79.899 Other long term (current) drug therapy; Z88.8 Allergy status to other drugs, medicaments and biological substances
CPT/HCPCS: 66984; 92015; J0697; J3010; V2788

== ENCOUNTER → 2024-02-04 | Outpatient (CLI) | payer BC, MEDICARE ==
[~2024-02-04] MED LIST changes: -PHENYLEPHRINE 10% OPHTH SOL 5ML OD PRN
== END ==
LOC: M WHC 10:34
PROVIDERS: ATTEND Nurse Practitioner Family
DX: Z12.31 Encounter for screening mammogram for malignant neoplasm of breast (principal)

== ENCOUNTER → 2024-03-12 | Outpatient (CLI) | payer BC, MEDICARE | LOC: M RAD 14:16 → EDSTATUS 15:00 | PROVIDERS: ATTEND Family Medicine | DX: M25.512 Pain in left shoulder (principal) ==

== ENCOUNTER → 2024-03-18 | Outpatient (CLI) | payer OTHER, MEDICARE | LOC: M PLAIMG 09:13 | PROVIDERS: ATTEND Nurse Practitioner Family | DX: Z01.818 Encounter for other preprocedural examination (principal) ==

== ENCOUNTER → 2024-04-22 | Outpatient (REF) | payer OTHER ==
[2024-04-22 15:39] LABS: HEPATITIS B SURFACE ANTIBODY NEGATIVE (POSITIVE)
[2024-04-22 15:51] LABS: HEPATITIS B SURFACE ANTIGEN NEGATIVE (NEGATIVE)
[2024-04-22 16:03] LABS: HIV 1&2 SCREEN NEGATIVE (NEGATIVE)
[2024-04-22 16:12] LABS: HEPATITIS C VIRUS ABY INDEX < 0.02 INDEX (<0.8)
[2024-04-24 12:52] LABS: QuantiFERON-TB Gold Plus NEGATIVE (NEGATIVE)
[2024-04-24 13:52] LABS: HEPATITIS B CORE ANTIBODY IGG NON-REACTIVE (NON-REACTIVE)
== END ==
LOC: M RAD 12:20
PROVIDERS: ATTEND Nurse Practitioner Family
DX: Z01.818 Encounter for other preprocedural examination (principal)

== ENCOUNTER 2024-05-21 11:58 | Outpatient (CLI) | payer BC, MEDICARE ==
[~2024-05-21] VITALS: Ht 175.3 cm; Wt 101.0 kg
[2024-05-21 12:30] VITALS: BP 168/73; O2SAT 100
[2024-05-21] MEDS: IRON SUCROSE 300 MG in NS 250 ML IV ONE (13:23)
[2024-05-21 15:10] VITALS: BP 140/68; O2SAT 97
== END 2024-05-21 15:10 ==
LOC: M INFU 11:58
PROVIDERS: ATTEND Internal Medicine
DX: D50.9 Iron deficiency anemia, unspecified (principal); Z88.8 Allergy status to other drugs, medicaments and biological substances
CPT/HCPCS: 96365; 96366; J1756

== ENCOUNTER 2024-05-28 12:30 | Outpatient (CLI) | payer BC, MEDICARE ==
[~2024-05-28] VITALS: Ht 175.3 cm; Wt 100.9 kg
[2024-05-28 12:30] VITALS: BP 143/63; O2SAT 100
[2024-05-28] MEDS: IRON SUCROSE 300 MG in NS 250 ML IV ONE (13:00)
[2024-05-28 14:49] VITALS: BP 142/60; O2SAT 99
== END 2024-05-28 14:50 ==
LOC: M INFU 12:30
PROVIDERS: ATTEND Internal Medicine
DX: D50.9 Iron deficiency anemia, unspecified (principal); Z88.8 Allergy status to other drugs, medicaments and biological substances
CPT/HCPCS: 96365; 96366; J1756

== ENCOUNTER 2024-06-04 13:00 | Outpatient (CLI) | payer BC, MEDICARE ==
[~2024-06-04] VITALS: Ht 175.3 cm; Wt 100.0 kg
[2024-06-04 13:05] VITALS: BP 148/69; O2SAT 99
[2024-06-04] MEDS: IRON SUCROSE 300 MG in NS 250 ML IV ONE (13:48)
[2024-06-04 15:00] VITALS: BP 156/71; O2SAT 100
[2024-06-04 15:40] VITALS: BP 146/71; O2SAT 100
== END 2024-06-04 15:40 ==
LOC: M INFU 13:00
PROVIDERS: ATTEND Internal Medicine
DX: D50.9 Iron deficiency anemia, unspecified (principal); Z88.8 Allergy status to other drugs, medicaments and biological substances
CPT/HCPCS: 96365; 96366; J1756

== ENCOUNTER → 2024-06-19 | Outpatient (CLI) | payer BC, MEDICARE ==
[~2024-06-19] MED LIST changes: -DESL5TAB28 PO; +DESL5TAB30 PO
[2024-06-19 14:13] LABS: HEMATOCRIT 25.4 % (36.0-47.0); HEMOGLOBIN 8.1 g/dl (12.0-15.5); MEAN CORPUSCULAR HEMOGLOBIN 30.2 pg (27.0-33.0); MEAN CORPUSCULAR HGB CONC 31.9 g/dl (32.0-36.5); MEAN CORPUSCULAR VOLUME 94.8 fl (80.0-96.0); PLATELET COUNT, AUTOMATED 273 10^3/uL (150-450); RED BLOOD COUNT 2.68 10^6/uL (4.00-5.40); WHITE BLOOD COUNT 10.2 10^3/uL (4.0-10.0)
[2024-06-19 14:33] LABS: CALCIUM LEVEL 9.1 MG/DL (8.3-10.6); CREATININE FOR GFR 5.64 MG/DL (0.55-1.30); POTASSIUM SERUM 5.2 MMOL/L (3.5-5.1)
== END ==
LOC: M LAB 13:38
PROVIDERS: ATTEND Internal Medicine
DX: N18.5 Chronic kidney disease, stage 5 (principal)

== ENCOUNTER 2024-07-14 16:07 | Emergency (ER) | payer BC, MEDICARE ==
[~2024-07-14] VITALS: Ht 177.8 cm; Wt 101.4 kg
[2024-07-14 17:16] LABS: LIPASE 56 U/L (12-53)
[2024-07-14 17:20] LABS: ALBUMIN 3.4 G/DL (3.2-5.2); ALKALINE PHOSPHATASE 94 U/L (35-104); ALT/SGPT < 9 U/L (7.0-40); AST/SGOT < 8 U/L (<34); BILIRUBIN,DIRECT < 0.1 MG/DL (<0.4); BILIRUBIN,TOTAL 0.2 MG/DL (0.3-1.2); BLOOD UREA NITROGEN 74 MG/DL (9-23); CALCIUM LEVEL 9.4 MG/DL (8.3-10.6); CARBON DIOXIDE LEVEL 19 MMOL/L (20-31); CHLORIDE LEVEL 106 MMOL/L (98-107); CREATININE FOR GFR 5.49 MG/DL (0.55-1.30); GLOMERULAR FILTRATION RATE 8.2 (>45); GLUCOSE, FASTING 159 MG/DL (74-106); MAGNESIUM LEVEL 2.5 MG/DL (1.8-2.4); POTASSIUM SERUM 4.8 MMOL/L (3.5-5.1); SODIUM LEVEL 137 MMOL/L (136-145)
[2024-07-14 17:25] LABS: BASO # 0.1 10^3/uL (0.0-0.2); BASO % 0.4 % (0.0-1.0); EOS # 0.3 10^3/uL (0.0-0.5); EOS % 1.7 % (0.0-3.0); LYMPH # 1.3 10^3/uL (1.5-5.0); LYMPH % 8.6 % (24.0-44.0); MEAN CORPUSCULAR HEMOGLOBIN 29.8 pg (27.0-33.0); MEAN CORPUSCULAR HGB CONC 31.8 g/dl (32.0-36.5); MEAN CORPUSCULAR VOLUME 93.7 fl (80.0-96.0); MONO # 0.9 10^3/uL (0.0-0.8); MONO % 6.1 % (2.0-8.0); NEUTROPHILS # 11.9 10^3/uL (1.5-8.5); NEUTROPHILS % 79.4 % (36.0-66.0); PLATELET COUNT, AUTOMATED 319 10^3/uL (150-450); RED BLOOD COUNT 2.05 10^6/uL (4.00-5.40); WHITE BLOOD COUNT 14.9 10^3/uL (4.0-10.0)
[2024-07-14 17:28] LABS: HEMATOCRIT 19.2 % (36.0-47.0); HEMOGLOBIN 6.1 g/dl (12.0-15.5)
[2024-07-14 17:31] LABS: INR 1.12; PARTIAL THROMBOPLASTIN TIME 33.7 SECONDS (24.8-34.2); PROTHROMBIN TIME 14.7 SECONDS (12.5-14.5)
[2024-07-14 18:31] VITALS: BP 152/70
[2024-07-14] MEDS: PANTOPRAZOLE 40MG VIAL IV ONE (18:34)
[2024-07-14 18:46] VITALS: TEMP 98.2; O2SAT 100
== END 2024-07-14 19:14 | disposition short-term general hospital (02) ==
LOC: M ED 16:07
DX: K92.2 Gastrointestinal hemorrhage, unspecified (principal); D64.9 Anemia, unspecified; I10 Essential (primary) hypertension; G47.33 Obstructive sleep apnea (adult) (pediatric); N18.9 Chronic kidney disease, unspecified; E11.9 Type 2 diabetes mellitus without complications; F41.9 Anxiety disorder, unspecified; F32.A Depression, unspecified; Z79.4 Long term (current) use of insulin; Z79.899 Other long term (current) drug therapy; Z96.651 Presence of right artificial knee joint; Z88.8 Allergy status to other drugs, medicaments and biological substances
CPT/HCPCS: 80048; 80076; 83690; 83735; 85025; 85384; 85610; 85730; 86850; 86900; 86901; 96374; 99284; J2470

== ENCOUNTER → 2024-07-14 | Outpatient (CLI) | payer BC, MEDICARE | LOC: M LAB 15:12 | PROVIDERS: ATTEND Transplant Surgery | DX: Z53.9 Procedure and treatment not carried out, unspecified reason (principal) ==

== ENCOUNTER → 2024-07-14 | Outpatient (CLI) | payer BC, MEDICARE ==
[2024-07-14 15:48] LABS: BASO # 0.1 10^3/uL (0.0-0.2); BASO % 0.4 % (0.0-1.0); EOS # 0.2 10^3/uL (0.0-0.5); EOS % 1.8 % (0.0-3.0); MEAN CORPUSCULAR HEMOGLOBIN 29.5 pg (27.0-33.0); MEAN CORPUSCULAR HGB CONC 31.1 g/dl (32.0-36.5); MEAN CORPUSCULAR VOLUME 94.8 fl (80.0-96.0); MONO # 0.7 10^3/uL (0.0-0.8); MONO % 5.8 % (2.0-8.0); NEUTROPHILS # 10.3 10^3/uL (1.5-8.5); PLATELET COUNT, AUTOMATED 291 10^3/uL (150-450); RED BLOOD COUNT 1.93 10^6/uL (4.00-5.40); WHITE BLOOD COUNT 12.8 10^3/uL (4.0-10.0)
[2024-07-14 15:49] LABS: HEMATOCRIT 18.3 % (36.0-47.0); HEMOGLOBIN 5.7 g/dl (12.0-15.5)
[2024-07-14 16:15] LABS: ALBUMIN 3.2 G/DL (3.2-5.2); ALKALINE PHOSPHATASE 86 U/L (35-104); ALT/SGPT 9 U/L (7.0-40); AST/SGOT < 8 U/L (<34); BILIRUBIN,TOTAL 0.2 MG/DL (0.3-1.2); BLOOD UREA NITROGEN 74 MG/DL (9-23); CALCIUM LEVEL 9.5 MG/DL (8.3-10.6); CARBON DIOXIDE LEVEL 19 MMOL/L (20-31); CHLORIDE LEVEL 106 MMOL/L (98-107); CREATININE FOR GFR 5.65 MG/DL (0.55-1.30); GLUCOSE, FASTING 147 MG/DL (74-106); POTASSIUM SERUM 4.9 MMOL/L (3.5-5.1); SODIUM LEVEL 139 MMOL/L (136-145); TOTAL PROTEIN 6.5 G/DL (5.7-8.2)
== END ==
LOC: M LAB 15:09
PROVIDERS: ATTEND Family Medicine
DX: D64.9 Anemia, unspecified (principal)

== ENCOUNTER → 2024-08-23 | Outpatient (CLI) | payer BC, MEDICARE ==
[2024-08-23 12:10] LABS: HEMATOCRIT 29.3 % (36.0-47.0); HEMOGLOBIN 9.5 g/dl (12.0-15.5); MEAN CORPUSCULAR HEMOGLOBIN 28.2 pg (27.0-33.0); MEAN CORPUSCULAR HGB CONC 32.4 g/dl (32.0-36.5); MEAN CORPUSCULAR VOLUME 86.9 fl (80.0-96.0); PLATELET COUNT, AUTOMATED 212 10^3/uL (150-450); RED BLOOD COUNT 3.37 10^6/uL (4.00-5.40); WHITE BLOOD COUNT 8.9 10^3/uL (4.0-10.0)
[2024-08-23 12:34] LABS: ALBUMIN 3.4 G/DL (3.2-5.2); CALCIUM LEVEL 9.6 MG/DL (8.3-10.6); CREATININE FOR GFR 6.41 MG/DL (0.55-1.30); GLOMERULAR FILTRATION RATE 6.9 (>45); PERCENT SATURATION 16.1 % (13.2-45.0); PHOSPHORUS LEVEL 6.4 MG/DL (2.4-5.1); POTASSIUM SERUM 4.9 MMOL/L (3.5-5.1)
[2024-08-23 12:37] LABS: FERRITIN 43.8 NG/ML (7.3-270.7)
== END ==
LOC: M LAB 11:27
PROVIDERS: ATTEND Physician Assistant Medical
DX: N18.5 Chronic kidney disease, stage 5 (principal); D63.1 Anemia in chronic kidney disease; E87.5 Hyperkalemia

== ENCOUNTER → 2025-04-24 | Outpatient (CLI) | payer BC, MEDICARE | LOC: M PLAIMG 16:06 | PROVIDERS: ATTEND Family Medicine | DX: M51.360 Other intervertebral disc degeneration, lumbar region with discogenic back pain only (principal) ==